=== PATIENT | male | born 1930 | race Caucasian/White ===

== ENCOUNTER 2017-04-13 21:01 | Inpatient (IN) | payer MEDICARE, OTHER ==
[~2017-04-13] VITALS: Ht 182.9 cm; Wt 81.0 kg
[~2017-04-13 21:01] MED LIST: ASP81TEC PO; CHOL10002 PO; COR625 PO; GLIP10TA2 PO; METF1000 PO; SMV40T PO
[2017-04-13 21:12] VITALS: BP 117/87; PULSE 79; RESP 16; O2SAT 96
[2017-04-13 21:15] LABS: BASOPHILS % (AUTO) 0.2 % (0-3); EOSINOPHILS % (AUTO) 0.1 % (0-5); MONOCYTES % (AUTO) 11.6 % (4-12); Mean Corpuscular Hemoglobin 28.3 pg (27.0-35.0); Mean Corpuscular Volume 83.2 fL (81-100); NEUTROPHILS % (AUTO) 74.5 % (40-74); Platelet Count 252 bil/L (150-400)
--- NOTE | 2017-04-13 21:18 | ED.REPORT ---
HPI-General Illness Date of Service Apr 13, 2017 ED Provider: Randy Elder DO An 86 year old male with a history of five way CABG, hypertension and diabetes is brought to the ED via EMS due to weakness and a concerning EKG. Paramedics were called to the pt's house because of a fall that occurred three hours ago. The pt states that he had felt suddenly weak and fell, but denies hitting his head or other trauma. He had been too weak to stand after the fall. Paramedics found him hypotensive with a pressure in the 70's, then noted ST elevation on a field EKG. The pt denies chest pain, abdominal pain or shortness of breath at this time, but does admit to chest pain last night lasting for over an hour. Nursing Notes Stated Complaint: STEMI Chief Complaint: Chest Pain Nursing Notes Reviewed: Yes Allergies: Coded Allergies: BROCK Inhibitors (Verified Allergy, Unknown, Anaphylaxis, 04/13/17) Scheduled Aspirin Chew (Aspirin Chew) 81 Mg Chew 81 MG PO QAM Carvedilol (Carvedilol) 6.25 Mg Tablet 6.25 MG PO DAILY Cholecalciferol (Vitamin D3) (Vitamin D3) 2,000 Unit Tablet 2,000 UNIT PO QAM Glipizide (Glipizide) 10 Mg Tablet 10 MG PO BIDWM Metformin (Glucophage) 1,000 Mg Tablet 1,000 MG PO BIDWM Simvastatin (Simvastatin) 40 Mg Tablet 40 MG PO HS Timolol Maleate/Pf (Timoptic 0.5% Ocudose Drop) 1 Each Droperette 1 DROP BOTH_ EYES HS Vitamin B Complex & Vit C No.4 (Super B Complex) 150 Mg Tablet 150 MG PO DAILY General Time Seen by MD: 21:02 Chief Complaint Weakness Hx Obtained From: Patient, EMS Arrived By: Ambulance Sudden in Onset?: Yes Onset Occurred: 1 - 4 hours ago Recent Healthcare: No recent doctor visit, No recent hospitalization Similar Sx Previous: No Past Medical History Past Medical History hypertension back injury diabetes Past Surgical History foot surgery 5 way CABG Reports: Cataract surgery, Cholecystectomy Smoking History Former Smoker (quit 40 years ago) Social History Other Social History: Good social support Ambulatory Status Independent Review of Systems Full Review of Systems Constitutional: Reports: Weakness - generalized Respiratory: Denies: Non-productive cough, Shortness of breath Cardiovascular: Denies: Chest pain (denies currently) GI: Denies: Abdominal pain, Vomiting Musculoskeletal: Denies: Back pain, Neck pain Skin: Denies Rash Neurologic: Denies: Change LOC, Headache Complete sys rev & neg: except as marked. Physical Exam Vital Signs Vital Signs Date Time Temp Pulse Resp B/P Pulse Ox O2 Delivery O2 Flow Rate FiO2 04/13/17 22:45 75 20 89/68 97 Room Air 04/13/17 21:12 37.4 79 16 117/87 96 Room Air Initial VS: Reviewed General/Constitutional: Awake, Alert Head / Eyes: Atraumatic, Normocephalic, PERRL, EOMI ENT: Atraumatic, Airway patent, Mucous membranes moist Neck: Atraumatic, Supple, Full range of motion Respiratory / Chest: Atraumatic, Breath sounds NL, Breath sounds = bilat, No respiratory distress Cardiovascular: Heart rate NL, Regular rhythm, Heart sounds NL Abdomen: Atraumatic, Soft, Non-tender Back: Atraumatic, Full range of motion Upper Extremities Upper Extremity / MS: Atraumatic, Full range of motion Lower Extremity / Pelvis / MS: Atraumatic, Full range of motion Skin: Atraumatic, Color NL, No rash, Warm, Dry Neurologic: Oriented X3, Speech NL, No motor deficits, No sensory deficits Psychiatric: Affect NL, Mood NL Interpretation & Diagnostics Lab Results Interpretation Result Diagram: 04/13/17 2100 04/13/17 2100 Test 04/13/17 21:00 04/13/17 22:10 White Blood Count 12.9th/mm3 (3.8-10.1) Red Blood Count 5.58mil/mm3 (4.40-5.80) Hemoglobin 15.8g/dL (13.8-17.2) Hematocrit 46.4% (41.0-50.0) Mean Corpuscular Volume 83.2fL (81-100) Mean Corpuscular Hemoglobin 28.3pg (27.0-35.0) Mean Corpuscular Hemoglobin Concent 34.1% (32.0-37.0) Red Cell Distribution Width 13.5% (12.3-15.4) Platelet Count 252bil/L (150-400) Neutrophils (%) (Auto) 74.5% (40-74) Lymphocytes (%) (Auto) 13.4% (14-46) Monocytes (%) (Auto) 11.6% (4-12) Eosinophils (%) (Auto) 0.1% (0-5) Basophils (%) (Auto) 0.2% (0-3) Prothrombin Time 12.9sec (8.1-12.5) Prothromb Time International Ratio 1.20ratio Activated Partial Thromboplast Time 29.0sec (22.8-33.0) Sodium Level 137mEq/L (134-144) Potassium Level 4.8mEq/L (3.5-5.2) Chloride Level 98mEq/L (97-108) Carbon Dioxide Level 20mmol/L (18-29) Blood Urea Nitrogen 21mg/dL (8-27) Creatinine 1.34mg/dL (0.76-1.27) Estimat Glomerular Filtration Rate 53mL/min (>59) Glucose Level 360mg/dL (60-99) Calcium Level 10.2mg/dL (8.5-10.1) Magnesium Level 1.8mg/dL (1.6-2.6) Total Bilirubin 0.6mg/dL (0.0-1.2) Aspartate Amino Transf (AST/SGOT) 90U/L (0-50) Alanine Aminotransferase (ALT/SGPT) 24U/L (0-44) Alkaline Phosphatase 114U/L (25-160) Total Creatine Kinase 625U/L (21-232) Troponin T 1.58ug/L (0.0-0.011) Total Protein 7.9g/dL (6.4-8.4) Albumin 4.0g/dL (3.4-5.0) Hold [place] Top Tube Received (Received) Pulse Oximetry Interpretation Pulse Oximetry Interpretation: 96% on room air Pulse Oximetry: Pulse Ox normal ECG Interpretation ECG Interpretation: accelerated junctional rhythm with a rate of 78 ST elevation in lead [address] elevation compared to prior Time: 21:06 Interpreted by: ED physician X-Ray Chest Interpretation Chest Xray Interpretation: IMPRESSION: Slight appearance of increased right basilar opacity possibly representing atelectasis versus developing pneumonia. Dictated by: Adelita Aquino M.D. on 04/13/2017 at 21:44 Approved by: Adelita Aquino M.D. on 04/13/2017 at 21:45 Interpretation / Wet Read by: Interpret - Radiologist CT Head Interpretation IMPRESSION: 1. No acute intracranial process. 2. Moderate atrophy and chronic microvascular ischemic changes. Dictated by: Adelita Aquino M.D. on 04/13/2017 at 21:28 Approved by: Adelita Aquino M.D. on 04/13/2017 at 21:29 Interpretation / Wet Read by: Anne - Radiologist Re-Eval/Medical Decision Med Decision/Clinical Course This is a very delightful 78-year-old male who presents after having 3 hours of time on the ground. Evidently last night he had chest pain. The chest pain was rather severe however resolved. Today he had no pain. He was however globally weak while walking and he fell to the ground. He was on the ground for about 3 hours before he was found. EMS was eventually called. They found that he had ST elevation inferiorly however he was pain free. He presented with no symptoms whatsoever. Of note he was hypotensive in the field and this responded to IV fluids well. On examination. Clear lungs, benign belly and no signs of muscle skeletal trauma. EKG certainly shows ST abnormalities in inferior leads however Q waves were already developing. His family tells me that his EKG is always abnormal. This gentleman has no pain. There is no clear -cut indication for emergent cardiac catheterization as he has hemodynamic stable and pain-free and most likely suffered an TX last night. Chest x-ray is worrisome for developing pneumonia. Assessment myocardial infarction subacute. #2 pneumonia. Plan he will be admitted to the progressive care unit. IV heparin. Oral aspirin. After consultation with Dr. Moore we will hold off on Plavix and we will treat with IV ceftriaxone. He was admitted hemodynamically stable. He had one bout of hypotension that responded nicely to IV fluids. Source of Hx: Old records Time of Eval: 22:00 Re-Evaluation/Progress Note: Pt rechecked with family present. Additional history is obtained. The diagnosis and plan for admission are discussed. The pt understands and agrees with the plan. All questions are addressed at this time. Consultation #1: Referral / Consult Name: Jeffrey Bowman MD Consulted With: Cardiology Call Returned at: 20:57 Note: Consulted with Dr. Bowman, cardiology, regarding pt's field EKG. Dr. Bowman does not believe that the EKG shows an acute STEMI. Consultation #2: Referral / Consult Name: Jeffrey Bowman MD Consulted With: Cardiology Call Returned at: 21:30 Note: Spoke with Dr. Bowman, who does not recommend cath due to pt's current lack of pain. Consultation #3: Referral / Consult Name: Júnior Moore MD Consulted With: Cardiology Call Returned at: 22:06 Tooling Inspector: Agrees with eval, Agrees with plan Note: Spoke with Dr. Moore, cardiology, regarding pt's case. Dr. Moore recommends aspirin and heparin without Plavix. Consultation #4: Referral / Consult Name: Estrellita Dewitt DO Consulted With: Hospitalist Call Returned at: 23:02 Tooling Inspector: Agrees with eval, Agrees with plan, Accepts admit Note: Spoke with Dr. Dewitt, hospitalist, regarding pt's case. Dr. Dewitt agrees with the evaluation and agrees to admit the pt. Counseled Regarding: Diagnosis, Lab results, Need for admission Discharge & Departure Primary Impression: Myocardial infarction Myocardial infarction ST status: non-ST elevation myocardial infarction Qualified Code: I21.4 - Non-ST elevation (NSTEMI) myocardial infarction Additional Impression: Pneumonia Pneumonia type: due to unspecified organism Laterality: right Lung location : lower lobe of lung Qualified Code: J18.1 - Lobar pneumonia, unspecified organism Disposition: ADMITTED TO HOSPITAL Discharge Condition All VS Reviewed: Yes Condition: Stable Referrals: Arnaldo Sanchez MD (PCP) Crit Care Except Billable Proc Time Spent: 30-74 minutes (60 minutes managing consultation, IV heparin and resuscitation.) Scribe Attestation Portions of this note were transcribed by Candelario Guerrero. I, Dr. Elder personally performed the history, physical exam and medical decision-making; I reviewed and confirmed the accuracy of the information in the transcribed note. Signed by: Danielle Thomson, 04/13/2017 and [id number]. copies to: Arnaldo Sanchez MD, Todd P DO Apr 13, 2017 21:18 CANDELARIO GUERRERO Apr 13, 2017 21:35
--- NOTE | 2017-04-13 21:30 | DRSVH ---
PROCEDURE: CT BRAIN WITHOUT CONTRAST ([id number]) INDICATIONS: fall weakness TECHNIQUE: Noncontrast 4.5 mm thick angled axial sections acquired from the foramen magnum to the vertex, with c oronal reformats. COMPARISON: None. FINDINGS: Image quality: Excellent. CSF spaces: Basal cisterns are patent. No extra-axial fluid collections. The ventricles are symmet keyon in size and shape. Brain: No intracranial bleeds or masses. There is cerebral volume loss for age, with resultant vent ricular and sulcal prominence. There are periventricular and deep white matter chronic small vessel ischemic changes. There is intracranial internal carotid artery atherosclerosis. Skull and face: Calvarium and visualized facial bones appear intact, without suspicious lesions. Sinuses: Visualized sinuses demonstrates mucous retention cyst versus polyp of the left maxillary an d sphenoid sinuses. IMPRESSION: 1. No acute intracranial process. 2. Moderate atrophy and chronic microvascular ischemic changes. Dictated by: Adelita Aquino M.D. on 04/13/2017 at 21:28 Approved by: Adelita Aquino M.D. on 04/13/2017 at 21:29
[2017-04-13 21:42] LABS: INR 1.2 ratio
--- NOTE | 2017-04-13 21:47 | DRSVH ---
PROCEDURE: X-RAY CHEST ONE VIEW, PORTABLE ([id number]) INDICATIONS: chest pain TECHNIQUE: One view of the chest was acquired. COMPARISON: [facility], , CHEST 1VW (PORTABLE), 08/23/2013, 16:16. FINDINGS: Surgical changes and devices: Sternal wires consistent previous bypass procedure are noted. Lungs and pleura: No pleural effusions or pneumothorax. There slight appearance of increased opacity within the right base. Mediastinum: Mediastinal contours appear normal. Heart size is normal. Bones and chest wall: No suspicious bony lesions. Overlying soft tissues appear unremarkable. IMPRESSION: Slight appearance of increased right basilar opacity possibly representing atelectasis ve rsus developing pneumonia. Dictated by: Adelita Aquino M.D. on 04/13/2017 at 21:44 Approved by: Adelita Aquino M.D. on 04/13/2017 at 21:45
[2017-04-13] MEDS ORDERED: cefTRIAXone Inj 2,000 MG in Dextrose 5% Minibag Plus 50 ML IV ONE (21:55)
[2017-04-13 21:59] LABS: Magnesium 1.8 mg/dL (1.6-2.6)
[2017-04-13 22:01] LABS: TROPONIN T 1.58 ug/L (0.0-0.011)
[2017-04-13] MEDS ORDERED: Heparin 25K Unit/500mL 0.45 NS 25,000 UNIT in IV Premix 1 EACH IV SCH (22:05)
[2017-04-13] MEDS ORDERED: Heparin 5,000 Unit/mL Inj IVPUSH ONE (22:05)
[2017-04-13] MEDS ORDERED: Heparin 5,000 Unit/mL Inj IVPUSH PRN (22:05)
[2017-04-13 22:45] VITALS: BP 89/68; PULSE 75; RESP 20; O2SAT 97
[2017-04-13] MEDS ORDERED: 0.9% Sodium Chloride 500 ML IV ONE (22:50)
[2017-04-13] MEDS ORDERED: TIMO1DRO4 BOTH_EYES (23:11)
[2017-04-13] MEDS ORDERED: GLIP10TA10 PO (23:12)
[2017-04-13] MEDS ORDERED: CARV6.252 PO (23:12)
[2017-04-13] MEDS ORDERED: METF1000 PO (23:12)
[2017-04-13] MEDS ORDERED: ASPI81TA3 PO (23:12)
[2017-04-13] MEDS ORDERED: SIMV40TA5 PO (23:13)
[2017-04-13] MEDS ORDERED: VITA150T PO (23:14)
[2017-04-13] MEDS ORDERED: CHOL200025 PO (23:14)
[2017-04-14] VITALS (10 sets, daily range): BP systolic 101–127; BP diastolic 61–69; PULSE 64–87; RESP 16–22; O2SAT 94–100
[2017-04-14] MEDS ORDERED: Ondansetron 2 mg/mL 2 mL Inj IVPUSH PRN ×2 (00:05→00:30)
[2017-04-14] MEDS ORDERED: Alum-Mag Hydrox-Simeth 30 mL Suspension PO PRN ×2 (00:05→00:30)
[2017-04-14] MEDS: Sodium Chloride LOK Flush 10 mL Syringe IVFLUSH SCH ×3 (00:30→16:30)
[2017-04-14] MEDS ORDERED: Heparin 25K Unit/500mL 0.45 NS 25,000 UNIT in IV Premix 1 EACH IV PRN (00:30)
[2017-04-14] MEDS ORDERED: Atropine 1 mg/10 mL (Code) Syringe IVPUSH PRN (00:30)
[2017-04-14] MEDS ORDERED: Polyethylene Glycol (PEG) 17 Gm Powder PO PRN (00:30)
[2017-04-14] MEDS ORDERED: Senna-Docusate 8.6-50 mg Tablet PO PRN (00:30)
--- NOTE | 2017-04-14 00:40 | PCM.HPMED ---
Subjective Date of Service Apr 14, 2017 Primary Provider: Admitting Physician: Estrellita Dewitt DO Primary Care Physician: Abram Ahn MD Attending Physician: Estrellita Dewitt DO Admit Status: From the Emergency Department Chief Complaint: Chest pain, weakness History of Present Illness: Patient is an 86 year old male with a history of CAD with five vessel CABG, hypertension and diabetes mellitus type 2 who presents with weakness and chest pain. Paramedics were called to the pt's house because of a fall that occurred three hours ago. The pt states that he had felt suddenly weak in his legs while walking and fell, but denies hitting his head or other trauma. He had been too weak to stand after the fall. Paramedics found him hypotensive with SBP in the 70's. An EKG in the field showed ST elevation. He reports aching substernal 7/ 10 chest pain which has now improved to a 2/10. This chest pain occurred over the last 2 days, and lasted for over an hour last night. He reports 3 days of generalized weakness and dizziness. He denies syncope, shortness of breath, palpitations, abdominal pain, N/V/D, orthopnea, PND, numbness/focal weakness, confusion, or diaphoresis. In the ED, BP was 89/68 but improved to 118/69 after receiving fluids. WBC was 12.9 with 74.5% neutrophils. Cr was 1.34. Glucose was 360. AST 90, ALT 24, CK was 625, Troponin was 1.58. EKG showed ST elevation in inferior leads. CXR showed increased right basilar opacity possibly representing pneumonia. CT head showed moderate atrophy and chronic microvascular ischemic changes, but not acute changes. Cardiology was consulted, and do not recommend an urgent cath at this time. They recommend aspirin and heparin without Plavix. Review of Systems: Comprehensive review of systems conducted and was negative except for the pertinent positives listed above. Allergies Coded Allergies: BROCK Inhibitors (Verified Allergy, Unknown, Anaphylaxis, 04/13/17) Home Medications Aspirin 81 mg daily Carvedilol 6.25 mg daily Vitamin D3 Glipizide 10 mg BID Metformin 1000 mg BID Simvastatin 40 mg qhs Timolol eye drops Vitamin B complex PMH hypertension diabetes mellitus CAD s/p CABG back injury Surgical History 5 way CABG foot surgery Cataract surgery Cholecystectomy Family History Father - at 82 of complications following abdominal surgery Mother - at 87 of natural causes Social History Hx Alcohol Use: No Hx Substance Use: No Hx Tobacco Use: No Smoking Status: Former Smoker (quit 40 years ago) Exam Vital Signs Vital Sign - Last Date Time Temp Pulse Resp B/P Pulse Ox O2 Delivery O2 Flow Rate FiO2 04/14/17 00:20 87 16 118/69 95 Room Air 04/13/17 21:12 37.4 Intake and Output 04/13/17 04/13/17 04/14/17 Cumulative From/Thru 14:59 22:59 06:59 04/13/17 22:46 - 04/13/17 22:46 Intake Total 500 ml 500 ml Balance 500 ml 500 ml Intake IV Total 500 ml 500 ml Exam General: Alert, Oriented X3, Cooperative, No acute distress Head: Normocephalic, atraumatic. External ears normal. Eyes: PERRLA, EOMI. Anicteric sclerae. Mouth: Mouth normal, Mucous membranes moist/pink Neck: Neck supple with full range of motion. Chest& Lungs: Clear to auscultation bilaterally with no crackles, wheezes, or rhonchi. Cardiovascular: Regular rate/rhythm, Normal S1, Normal S2, No murmurs/rubs/ gallops Abdomen: Non-tender, Non-distended, No masses, Normoactive bowel tones, Soft Musculoskeletal: Normal range of motion Extremities: No cyanosis/clubbing/edema bilaterally Neurological: Grossly neurologically intact. Normal speech Lymph: no cervical or supraclavicular lymphadenopathy Skin: no rash, ecchymosis, erythema Lab and Diagnostics Result Diagram: 04/13/17209904/13/17 2100 Assessment & Plan Patient is an 86 year old male with a history of CAD with five vessel CABG, hypertension and diabetes mellitus type 2 who presents with weakness and chest pain. Admitted for acute STEMI. Acute STEMI. Present on admission. - Pt presents with substernal chest pain and weakness with ST elevation in inferior leads. Troponin 1.58. Hx of CAD with 5x CABG. Cardiology consulted, will see him in the AM, do not recommend urgent catheterization. Will start aspirin and heparin per Cardiology recommendations. - Heparin gtt cardiac protocol - Aspirin 81 mg daily - Switched statin to atorvastatin 80 mg daily - Nitro and morphine PRN - Echocardiogram in AM - Cardiology to consult in AM -beta melody held on admission d/t hypotension, normally takes carvedilol at home -hgba1c and lipid panel pending Community acquired pneumonia, acute. Present on admission. - CXR showed increased right basilar opacity possibly representing atelectasis versus developing pneumonia (read by admitting team). WBC elevated with left shift. Onset of pneumonia may have pushed patient into acute ND. - Ceftriaxone and azithromycin IV daily - Sputum and blood cultures - Urine Legionella and Strep pneumo antigens - Viral PCR - Procalcitonin - Monitor CBC Acute kidney injury. Present on admission. - Baseline Cr 0.9. Cr today 1.34. Possibly due to dehydration from pneumonia. - Gentle rehydration - Avoid nephrotoxic agents. Will hold metformin Type 2 diabetes mellitus - Glucose 360 today. Possibly secondary to infection. - A1c ordered - Humalog medium dose correctional scale - Lantus 5 U qhs - Hold home glipizide - pt is NPO - Holding home metformin until Cr improves Hypertension, chronic - Pt was hypotensive on admission - will hold carvedilol until stable and seen by cardiology - Bowel regimen as needed - Antiemetic as needed Patient is admitted under inpatient status with expected length of stay greater than 2 midnights due to severity of presenting symptoms, risk of adverse event, and complexity of treatment plan. Attending Statement The patient was seen and examined together with house staff on 04/14/2017 and I agree with the history, exam and plan as outlined in the note above. Lars Hamilton Apr 14, 2017 00:40 Estrellita Dewitt DO Apr 14, 2017 04:29
[2017-04-14] MEDS ORDERED: Glucose 40% Oral Gel 15 Gm Tube PO PRN (01:00)
[2017-04-14] MEDS: 0.9% Sodium Chloride 1,000 ML IV SCH ×4 (01:53→18:06)
--- NOTE | 2017-04-14 02:14 | NUR ---
Admit Received patient from ED. Transferred to bed, on RA, Heparin gtt infusing, denies pain or discomfort. Cooperative with care, Tele 1' AVB, with IVCD, PVC, PAC. Allergy band on, oriented to room and call light. Safety checks in place, care continues, pt. indicates no further needs at this time - care continues.
[2017-04-14] MEDS: Insulin GLARgine 100 Unit/mL Syringe SUBQ SCH ×2 (03:09→21:28)
[2017-04-14 04:52] LABS: BASOPHILS % (AUTO) 0.1 % (0-3); EOSINOPHILS % (AUTO) 0.1 % (0-5); MONOCYTES % (AUTO) 10.1 % (4-12); Mean Corpuscular Hemoglobin 29.3 pg (27.0-35.0); Mean Corpuscular Volume 80.9 fL (81-100); Platelet Count 168 bil/L (150-400)
[2017-04-14 05:28] LABS: Magnesium 1.6 mg/dL (1.6-2.6)
[2017-04-14] MEDS: Azithromycin Inj 500 MG in Dextrose 5% w/Vial Mate 250 ML IV SCH (05:30)
--- NOTE | 2017-04-14 06:53 | NUR ---
Cardiac Rested with eyes closed, no stated pain or discomfort. Wakes to gentle stimuli. Tele: 1st AVB, IVCD, PAC, PVC with multiple runs of 2nd degree HB, and 1 episode 3rd degree HB. MD notified, Atropine and Pacer pads placed at bedside. Pt. placed on continuous monitoring. Heparin gtt infusing @ 1025u/hr, next draw scheduled for 1030.
[2017-04-14] MEDS: Insulin LISPRO 300 Unit/3 mL Inj SUBQ SCH ×4 (09:28→21:29)
--- NOTE | 2017-04-14 10:27 | PCM.PNMED ---
Subjective Date of Service Apr 14, 2017 Subjective Patient was admitted last night for an inferior STEMI. Cardio consulted in the ER and did not recommend an urgent cath. They recommend aspirin and heparin without Plavix. This morning, patient rests on bed with eyes closed, no stated pain or discomfort. Wakes to gentle stimuli. Patient denies any complaint at this point. Tele shows multiple runs of 2nd degree heart bloack, and 1 episode of 3rd degree HB. Heparin gtt infusing. Exam Vital Signs Vital Sign - Last Date Time Temp Pulse Resp B/P Pulse Ox O2 Delivery O2 Flow Rate FiO2 04/14/17 07:32 36.8 79 18 101/61 100 Room Air Intake and Output 04/13/17 04/13/17 04/14/17 Cumulative From/Thru 15:00 23:00 07:00 04/13/17 22:46 - 04/14/17 06:57 Intake Total 500 ml 681 ml 1181 ml Balance 500 ml 681 ml 1181 ml Intake Oral 0 ml 0 ml IV Total 500 ml 681 ml 1181 ml # Voids 2 2 Exam General: Alert, Oriented X3, Cooperative, No acute distress Head: Normocephalic, atraumatic. External ears normal. Eyes: PERRLA, EOMI. Anicteric sclerae. Mouth: Mouth normal, Mucous membranes moist/pink Neck: Neck supple with full range of motion. Chest& Lungs: Clear to auscultation bilaterally with no crackles, wheezes, or rhonchi. Cardiovascular: Regular rate/rhythm, Normal S1, Normal S2, II/ systolic murmur. Abdomen: Non-tender, Non-distended, No masses, Normoactive bowel tones, Soft Extremities: No cyanosis/clubbing/edema bilaterally Neurological: Grossly neurologically intact. Normal speech Lymph: no cervical or supraclavicular lymphadenopathy Skin: no rash, ecchymosis, erythema IVs and Medications Medications Reviewed: Medications were reviewed in detail Lab and Diagnostics Result Diagram: 04/14/1742904/14/17 043 X-Rays, CTs and MRIs PROCEDURE: CT BRAIN WITHOUT CONTRAST IMPRESSION: 1. No acute intracranial process. 2. Moderate atrophy and chronic microvascular ischemic changes. Dictated by: Adelita Aquino M.D. on 04/13/2017 at 21:28 PROCEDURE: X-RAY CHEST ONE VIEW, PORTABLE IMPRESSION: Slight appearance of increased right basilar opacity possibly representing atelectasis versus developing pneumonia. Dictated by: Adelita Aquino M.D. on 04/13/2017 at 21:44 Assessment & Plan Patient is an 86 year old male with a history of CAD with five vessel CABG, hypertension and diabetes mellitus type 2 who presents with weakness and chest pain. Admitted for acute STEMI. # Acute STEMI. Present on admission. - Patient presents with substernal chest pain and weakness with ST elevation in inferior leads. Troponin 1.58, trending down to 1.29. - Telemetry shows several runs of 2nd degree heart block and one 3rd degree heart block. - Hx of CAD with 5x CABG. Cardiology consulted in the ED and did not recommend urgent catheterization. Called Dr. Bowman again this morning, who agreed to see the patient MARYBETH. - Aspirin 81mg and heparin gtt per Cardiology recommendations. - Discussed with Dr. Bowman, who will plan to do a cardiac cath today if the patient agrees to proceed. - Continue atorvastatin 80 mg daily - Nitro and morphine PRN - Echocardiogram pending - beta melody held on admission d/t hypotension, normally takes carvedilol at home. Will continue to hold as his BP is still low. - Normal lipid panel. A1c pending # Possible community acquired pneumonia, acute. Present on admission. - CXR showed increased right basilar opacity possibly representing atelectasis versus developing pneumonia. - Procalcitonin mildly elevated at 0.28. - WBC elevated with left shift on admission, resolved now. - Ceftriaxone and azithromycin IV was given. - Sputum and blood cultures pending. - Urine Legionella and Strep pneumo antigens pending. Will consider D/C antibiotics if these tests are negative. - Continue to monitor CBC # Acute kidney injury. Present on admission. Resolved. - Baseline Cr 0.9. Possibly due to dehydration from pneumonia. - Gentle rehydration - Avoid nephrotoxic agents. # Type 2 diabetes mellitus - Glucose 360 today. Possibly secondary to infection. - A1c pending - Humalog medium dose correctional scale - Lantus 5 U qhs - Hold home glipizide - pt is NPO - Holding home metformin until Cr improves # Hypertension, chronic - Pt has had low-normal BP - will hold carvedilol until stable and seen by cardiology - Bowel regimen as needed - Antiemetic as needed Patient is admitted under inpatient status with expected length of stay greater than 2 midnights due to severity of presenting symptoms, risk of adverse event, and complexity of treatment plan. Pain Evaluation: Adequate Pain Control VTE Prophylaxis: Sub-Q Heparin (Unfractionated) Resuscitation Status: CPR: Attempt Resuscitation Attending Statement Patient seen and examined with house staff. Agree with all attached documentation. Donato Ayala DO Apr 14, 2017 08:02 Kev Horowitz MD Apr 15, 2017 13:25
--- NOTE | 2017-04-14 10:49 | NUR ---
pACER PAD Addendum: 04/14/17 at 1050 by ISAAK TOBAR RN Pacer pad applied to chest and back as ordered. Respiratory viral sample sent to lab. Will sand urine sample when it's available.
--- NOTE | 2017-04-14 13:22 | CONS ---
[address] [address] CONSULTATION REPORT PATIENT: JOSE CHAPIN : 1930 MR#: [id number] ADMIT: 04/13/2017 JOB ID: [id number] DATE OF SERVICE: REQUESTED BY: Randy Elder DO, and Kev Horowitz MD. CHIEF COMPLAINT: Suspected inferior NY. HISTORY OF PRESENT ILLNESS: This 86-year-old gentleman presented to the hospital yesterday. The paramedics brought the patient home due to the EKG in the field that suggested an inferior NY. The patient apparently felt weak in his legs. He states he lost power in his legs and fell. Denies any syncope or presyncope. He was too weak to stand up. The paramedics found him to be very hypotensive. The patient at the time of assessment denied any chest discomfort. I spoke with Dr. Randy Elder who stated that the patient's last episode of chest discomfort was over a day ago. The initial plan while the patient was still en route was to take him to the chemical laboratory scientist. However, this was changed once it became apparent that the patient had not had any chest discomfort for over 24 hours. He was hemodynamically stable and his blood pressure was around 120 systolic after receiving IV fluids. The patient was breathing comfortably and did not complain of any symptoms. This morning, the patient is pain free. History was obtained from him as well as the chart and his son. The patient apparently has known history of coronary artery disease having had a five-vessel bypass in [place] 12 years ago. He does not see Cardiology on a regular basis. I have reviewed the charts. There is mention that Cardiology did not recommend Plavix. I am not aware of that and I think it might be either an error or a misunderstanding on the part of the resident. PAST MEDICAL HISTORY: Hypertension, diabetes, coronary artery disease, status post CABG, and back injury. Cholecystectomy. FAMILY HISTORY: Negative for premature coronary artery disease. PERSONAL HISTORY: Nonsmoker. Nondrinker. He is moderately active. He still does yard work. He claims he owns many homes. He still drives. ALLERGIES: BROCK INHIBITORS. REVIEW OF SYSTEMS: Comprehensive review of systems was done. Pertinent negatives are no GI, bleeding. No recent strokes. No upcoming surgeries. EXAMINATION: Alert, oriented. Neck supple. No JVD, no bruit. Chest: Clear. Heart sounds S1, S2 regular. Occasional ectopics. No gallops, no murmurs. Abdomen soft. Extremities: Negative for CCE. Distal pulses are diminished. PERFORMING ARTS ROAD MANAGER: As mentioned, alert and oriented. Moving all four limbs. LAB DATA: Reviewed. Hemoglobin 15. Troponin is elevated at 1.29. LDL is 104. HDL is 39. ALT is mildly elevated at 62. Telemetry shows periods of marked first-degree AV block, followed by Wilsonnckebach, one period of high-grade AV block with 3:1 conduction. ASSESSMENT AND PLAN: Recent inferior myocardial infarction. This gentleman presented late after an inferior NY. He was hemodynamically stable and the NY had occurred more than 24 hours prior to admission. In view of this, an urgent intervention was not indicated. Medical management was recommended. The patient has started having periods of high-grade AV block. 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 I have discussed the treatment options with the patient as well as his son. His son helps him make his medical decisions. They have agreed for angiography. My hope is that by intervening on his right coronary artery his AV block might resolve and he might not require a pacemaker. If he continues to have periods of AV block then consideration will need to be given for a permanent pacemaker prior to discharge. It to be noted it is not uncommon for patients to have AV block after right coronary infarct and oftentimes these will resolve with time. All this was explained to the patient. The procedure, the risks, benefits were explained. They have agreed to proceed ahead with intervention.
--- NOTE | 2017-04-14 14:23 | DRSVH ---
[facility] [address] [place] [address] Echocardiogram Report Name: JOSE CHAPIN WStudy Uriel e: 04/14/2017 Height: 7 2 in Hospital Exam Location: [facility] Weight: 1 74 lb Gender: Male BSA: 2.0 m2 : 1930 Age: 86 yrs BP: 101/6 1 mmHg Reason For Study: [place], Pneumonia, Chest Pain Ordering Physician: HOSPITALIST [facility] Performed By: Flores Chávez Referring Physician: Dr. Abram Ahn Interpretation Summary 1) Normal left ventricular size with severely reduced systolic function (EF 25-30%). 2) Moderate global hypokinesis with akinesis of the inferior and inferolateral wall. 3) Mildly dilated right ventricle with mildly reduced function. 4) Moderate mitral regurgitation present. 5) Pulmonary systolic pressure estimated at 37mmHg. 6) No prior Echo available for comparison. Findings consistent with ischemic heart disease. Procedure: A two-dimensional transthoracic echocardiogram with color flow and Doppler was performed. The study quality was technically good. There is no prior echocardiogram noted for this patient. Left Ventricle: The left ventricle is normal in size. Left ventricular wall thickness is mildly increased. A false chord is noted (normal variant). The ejection fraction is estimated to be 25-30%. Left ventricular systolic function is moderate to severely reduced. There is moderate global hypokinesis of the left ventricle. Inferior wall and inferolateral wall are akinetic. Diastolic function could not be accurately assessed due to atrial fibrillation. Right Ventricle: TAPSE measures at 11mm. The right ventricle is mildly dilated. Right ventricular systolic function is mildly reduced. Atria: The left atrial size is normal. Right atrial size is normal. The interatrial septum is intact with no evidence for an atrial septal defect. Mitral Valve: The mitral valve leaflets appear mildly thickened, but open well. There is no mitral valve stenosis. There is moderate mitral regurgitation. PISA noted calculated due to multiple jets. Aortic Valve: There is mild aortic valve sclerosis. There is no aortic valve stenosis. There is trace aortic regurgitation. Tricuspid Valve: The tricuspid valve is normal in structure and function. There is mild tricuspid regurgitation. The right ventricular systolic pressure is estimated at 37 mmHg assuming a right atrial pressure of 15 mm Hg. Pulmonic Valve: The pulmonic valve is not well visualized. There is moderate pulmonic regurgitation. Great Vessels: The aortic root is normal size. The ascending aorta is at the upper limits of normal in size. The pulmonary artery is normal size. The IVC is dilated (diameter is greater than 2.1 cm) and it collapses less than 50% with a sniff. This suggests a high right atrial pressure of 15 mm Hg. Pericardium/ Pleura There is no pericardial effusion. There is no pleural effusion. MMode/2D Measurements & Calculations LVIDd: 5.1 cm LA dimension RA long axis LVOT diam: 2.5 cm LVIDs: 4.0 cm AoV Openin.4 cm FS: 21.9 % LA A2 area RA area Ao root diam: 4.0 cm EPSS: 0.94 cm Aortic Jxn: 3.2 cm IVSd: 1.3 cm : 17.6 cm asc Aorta Diam: 3.7 cm LVPWd: 1.1 cm LA A4 area RA vol Ao Arch Diam (Prox : 55.3 ml Trans): 3.3 cm LA length (vol) RA : 27.5 mm2 LA vol: 57.7 ml LA vol index IVC diam: 2.3 cm LVAd ap4: 34.7 cm LVAd ap2 LV frederick. diameter/BSA LVAs ap4: 27.6 cm : 36.5 cm EF(MOD-bp) (cm/m^2): 2.5 LVLs ap4: 7.6 cm LVLd ap2: 8.7 cm: 23.1 % EDV(MOD-sp2) EDV(sp2-el) LVAs ap2 : 30.5 cm LVLs ap2: 8.4 cm ESV(MOD-sp2) ESV(sp2-el) EF(MOD-sp2) LV sys. diameter/BSA (cm/m^2): 2.0 Doppler Measurements & Calculations Ao V2 max MV E max shahzad Med Peak E' Shahzad TR max shahzad : 135.0 cm/sec : 116.1 cm/sec : 233.4 cm/sec Ao max P.3 mmHg E/E' med: 13.4 TR max PG Ao mean P.7 mmHg : 21.9 mmHg LVOT Max Shahzad PA V2 max : 80.2 cm/sec : 65.6 cm/sec REINA(I,D): 2.8 cm PA mean PG sev ratio: 0.58 : 0.94 mmHg PA Accel Time : 0.12 sec MV dec time: 0.12 sec Ao V2 mean LV V1 max PG PA V2 mean : 90.0 cm/sec : 45.5 cm/sec Ao V2 VTI: 28.0 cmLV V1 VTI PA pr(Accel) REINA(V,D): 2.9 cm2 : 16.3 cm : 27.1 mmHg REINA indexed to BSA (cm^2/m^2): 1.4 Reading Physician:02:22 PM
--- NOTE | 2017-04-14 14:59 | NUR ---
Heart cath prep Pt. has 2 patent peripheral IV. Plavix 150 mg PO given as directed by Dr. Bowman and . Pt. already had Aspirin 81 mg PO this morning, which Dr. Bowman was made aware of this. DP and TD pulses are audible with doppler and marked with surgical marker. Anticipate heart cath today. Addendum: 04/14/17 at 1651 by ISAAK TOBAR RN Heart cath was cancelled. Pt. will have the procedure tomorrow. Pt. was notified.
[2017-04-14 17:14] LABS: APPEARANCE,URINE CLEAR (CLEAR,HAZY); COLOR,URINE YELLOW (YELLOW)
[2017-04-14 17:15] LABS: OCCULT BLOOD,URINE TRACE (NEGATIVE); UROBILINOGEN,URINE NORMAL (NORMAL)
[2017-04-14] MEDS ORDERED: Heparin 25K Unit/500mL 0.45 NS 25,000 UNIT in IV Premix 1 EACH IV SCH (17:20)
[2017-04-14] MEDS: Heparin 5,000 Unit/mL Inj IVPUSH PRN ×2 (17:29→23:15)
[2017-04-14] MEDS ORDERED: Insulin GLARgine 100 Unit/mL Syringe SUBQ SCH (21:00)
[2017-04-14] MEDS ORDERED: cefTRIAXone Inj 1,000 MG in Dextrose 5% Minibag Plus 50 ML IV SCH (22:00)
[2017-04-15] VITALS (18 sets, daily range): BP systolic 94–153; BP diastolic 44–104; PULSE 51–69; RESP 11–26; O2SAT 88–97
[2017-04-15] MEDS: Sodium Chloride LOK Flush 10 mL Syringe IVFLUSH SCH ×3 (00:40→17:23)
--- NOTE | 2017-04-15 04:55 | NUR ---
NPO/ACTIVITY Pt. NPO after midnight, anticipation of heart cath in am. Tele: 60's 1' AVB, IVCD with runs of 2' HB. Pacer pads in place, Atropine at bedside. Up out of bed for walk, weak gait with 1 person assist. Care continues -
[2017-04-15] MEDS: 0.9% Sodium Chloride 1,000 ML IV SCH ×2 (05:07→18:10)
[2017-04-15] MEDS: Azithromycin Inj 500 MG in Dextrose 5% w/Vial Mate 250 ML IV SCH (05:07)
[2017-04-15 06:10] LABS: Magnesium 1.6 mg/dL (1.6-2.6)
[2017-04-15] MEDS ORDERED: Heparin 10,000 Unit/1,000 mL NS Premix IV ONE (07:33)
[2017-04-15] MEDS ORDERED: Heparin 1,000 Units/500 mL NS Premix IV ONE (07:33)
[2017-04-15] MEDS: Insulin LISPRO 300 Unit/3 mL Inj SUBQ SCH ×4 (07:44→22:53)
--- NOTE | 2017-04-15 07:50 | NUR ---
Off unit Pt off unit to general production laborer with staff. Report given at bedside. BG was 325, insulin not given due to NPO but given to RN to take to cath just sayra CORTEZ wants it given prior to procedure. Ativan and Benadryl ordered but no given as well due to not being able to pull from omni, general production laborer staff will give down stairs. Pt A&Ox3, voided cecil urine prior to leaving, vitals stable, and SL x2. I will notify family. histologist technologist aware pt off unit. Addendum: 04/15/17 at 1118 by SHARRON LINK RN Back to unit at 1100 by JOHN ANNE. A&Ox3, vitals stable, on bedrest till after lunch. NS running at 100 till 1300. Right groin site soft and non tender no oozing, no co/o pain.
[2017-04-15] MEDS ORDERED: Nitroglycerin 50,000 mcg/250 mL D5W Premix IV ONE (07:58)
[2017-04-15] MEDS ORDERED: Atropine 1 mg/10 mL (Code) Syringe ONE (08:14)
[2017-04-15] MEDS ORDERED: Atropine 1 mg/10 mL (Code) Syringe IVPUSH PRN (09:15)
[2017-04-15] MEDS ORDERED: Sodium Chloride LOK Flush 10 mL Syringe IVFLUSH PRN (09:15)
--- NOTE | 2017-04-15 11:00 | NUR ---
Post Cath: Pt arrived to [facility] at 0855 post diagnostic heart cath from lab courier to room 9. R groin with tegaderm dressing, no drainage, pedal pulses weak bilaterally. VSS. Pt had moments of apnea, 2L NC applied with SpO2 remained >92%. During apnea, HR dropped to 30-40s. Once pt awake, tolerated po intake. Vitals remained stable throughout time in [facility]. Report called Mini Rodriguez RN. Pt taken upstairs to room 2008 at 1100 in bed.
--- NOTE | 2017-04-15 11:34 | CS94 ---
[address] [address] DIAGNOSTIC CARDIAC CATHETERIZATION PATIENT: JOSE CHAPIN : 1930 MR#: [id number] ADMIT: 04/13/2017 JOB ID: [id number] SERVICE DATE: 04/15/2017 PROCEDURE: 1. Selective coronary angiography. 2. Saphenous vein angiography. 3. PINTO angiography. 4. Left heart catheterization. INDICATION: Non-STEMI. PROCEDURAL DETAILS: The reader and the coders are referred to the procedure log for complete details. Briefly, it was done via right femoral approach using a 6-Maltese system. ANGIOGRAPHIC FINDINGS: 1. Left main in its ostium has a 70%-80% lesion. 2. LAD is a diffusely diseased vessel. It has disease of about 50%-70% in its entirety. The diagonals are involved as well. Faint competitive flow is noted in the distal vessel. There is retrograde filling of the saphenous vein graft on the left coronary injection. This appears to be from the ramus intermedius branch. The proximal LAD has a long tubular stenosis of about 80%. 3. Circumflex is diffusely diseased as well. It is nondominant. The proximal and mid segment have multiple tandem lesions ranging from 60%-80%. Mid segment has a tubular stenosis of about 70%. No significant OM's were identified on [place] coronary injections. 4. Ramus intermedius is a moderate caliber vessel. There is a graft attached to this vessel that appears to fill retrogradely. 5. Right coronary artery is totally occluded in its mid segment. 6. Saphenous vein graft angiography: There is a T graft that appears to be attached to an obtuse marginal branch and a ramus. This graft appears to be pristine. The [place] vessels that it supplies are diffusely diseased. 7. Saphenous vein graft to posterolateral branch of the right coronary artery is occluded. It appears to be filled with thrombus. 8. Saphenous vein graft to PDA is patent. It is a small caliber graft. The PDA is a small caliber vessel also about 1.5 mm. The proximal part of the PDA has a 50% lesion and the apical segment an 80% lesion but this lesion is not amenable to percutaneous intervention. 9. Subclavian angiography revealed patent PINTO to the LAD. The PINTO attaches into the apical LAD which like the rest of the LAD is diffusely diseased. The mid left subclavian has a tight ulcerated 80% lesion. 10. Note is also made of heavy calcification in the aortic arch. 11. Left heart catheterization revealed moderately reduced LV function. Severe anteroapical hypokinesis to akinesis is suspected on this under filmed LV gram. There is 1-2+ MR also and some of it could be catheter induced. LVEDP was 21. There was no gradient upon pullback. In summary, this gentleman is adequately revascularized. The biggest problem is going to be his subclavian. It is an ulcerated lesion with significant plaque burden. This would be at risk for an embolic shower. With regards to his recently occluded saphenous vein graft, this is best treated medically.
--- NOTE | 2017-04-15 16:38 | PCM.PNMED ---
Subjective Date of Service Apr 15, 2017 Subjective Overnight: Uneventful. Patient had the cath done and had no issue. Vitals remained stable. Telemetry shows some SR at 60s with 2nd degree heart block at times. Today: Patient denies any symptoms this morning. He denies CP, SOB, dizziness, nausea, or vomiting. In the afternoon, his family has a lot of questions regarding the blockage of the subclavian artery. Dr. Bowman discussed with them about the risk of embolism and recommended medical treatment at this point. However, family would like to have a second opinion. The patient's granddaughter really likes Dr. Acosta and would like to have him evaluate the patient, either at [facility] or have the patient transfer to [facility] in [place]. Exam Vital Signs Vital Sign - Last Date Time Temp Pulse Resp B/P Pulse Ox O2 Delivery O2 Flow Rate FiO2 04/15/17 04:48 36.5 67 20 107/58 95 Room Air Intake and Output 04/14/17 04/14/17 04/15/17 Cumulative From/Thru 15:00 23:00 07:00 04/13/17 22:46 - 04/15/17 06:28 Intake Total 932 ml 2273 ml 4386 ml Output Total 500 ml 250 ml 750 ml Balance 432 ml 2023 ml 3636 ml Intake Oral 120 ml 300 ml 420 ml IV Total 812 ml 1973 ml 3966 ml Output Urine Total 500 ml 250 ml 750 ml # Voids 1 3 # Bowel Movements 0 0 Exam General: Alert, Oriented X3, Cooperative, No acute distress Head: Normocephalic, atraumatic. External ears normal. Eyes: PERRLA, EOMI. Anicteric sclerae. Mouth: Mouth normal, Mucous membranes moist/pink Neck: Neck supple with full range of motion. Chest& Lungs: Clear to auscultation bilaterally with no crackles, wheezes, or rhonchi. Cardiovascular: Regular rate/rhythm, Normal S1, Normal S2, II/ systolic murmur. Abdomen: Non-tender, Non-distended, No masses, Normoactive bowel tones, Soft Extremities: No cyanosis/clubbing/edema bilaterally Neurological: Grossly neurologically intact. Normal speech IVs and Medications Medications Reviewed: Medications were reviewed in detail Lab and Diagnostics Result Diagram: 04/15/1751904/15/17519 X-Rays, CTs and MRIs PROCEDURE: CT BRAIN WITHOUT CONTRAST IMPRESSION: 1. No acute intracranial process. 2. Moderate atrophy and chronic microvascular ischemic changes. Dictated by: Adelita Aquino M.D. on 04/13/2017 at 21:28 PROCEDURE: X-RAY CHEST ONE VIEW, PORTABLE IMPRESSION: Slight appearance of increased right basilar opacity possibly representing atelectasis versus developing pneumonia. Dictated by: Adelita Aquino M.D. on 04/13/2017 at 21:44 Assessment & Plan Patient is an 86 year old male with a history of CAD with five vessel CABG, hypertension and diabetes mellitus type 2 who presents with weakness and chest pain. Admitted for acute STEMI. # Acute STEMI. Present on admission. - Patient presents with substernal chest pain and weakness with ST elevation in inferior leads. Troponin 1.58, trending down to 1.29. - Hx of CAD with 5x CABG. - Cardiology consulted in the ED and did not recommend urgent catheterization. semiconductor lab technician was done this morning 04/15, which showed severe CAD in both tribal and graft vessels, notably total occlusion in the RCA and the saphenous vein graft to the posterolateral branch of the RCA. There is also a tight ulcerated 80% lesion in the mid left subclavian with significant plaque burden that is at risk for an embolic shower. - Telemetry continues to show several runs of 2nd degree heart block overnight. - Echocardiogram shows severely reduced systolic function (EF 25-30%) and moderate global hypokinesis with akinesis of the inferior and inferolateral wall. - Given his age and risk factors, Dr. Bowman recommended conservative management with medications. Unsure if patient is a candidate for a pacemaker. Will need to discuss with family about this as well. - Patient's family requested a second opinion, Dr. Acosta in particular. I contacted Dr. Acosta, who kindly accepts the consultation and will see the patient tomorrow. - Continue Aspirin 81mg and Plavix 75mg daily. - Continue atorvastatin 80 mg daily. - beta melody held on admission d/t hypotension, which resolved. Will resume home Carvedilol. - Nitro and morphine PRN - Normal lipid panel. # Possible community acquired pneumonia, acute. Present on admission. - In retrospect, we do not think the patient has pneumonia. His symptoms were likely cardiac-related. - CXR showed increased right basilar opacity possibly representing atelectasis versus developing pneumonia. - Procalcitonin mildly elevated at 0.28. Will check Procal tomorrow. - WBC elevated with left shift on admission, resolved now. - Ceftriaxone and azithromycin IV was given for 2 days. - No sputum available for culture, blood cultures pending. - Urine Legionella and Strep pneumo antigens negative. - Continue to monitor CBC. # Acute kidney injury. Present on admission. Resolved. - Baseline Cr 0.9. Possibly due to dehydration. - Avoid nephrotoxic agents. # Type 2 diabetes mellitus, uncontrolled, chronic. - Elevated blood glucose. A1c 8.0. - Increase Lantus 5 units to 7 units qhs - Humalog medium dose correctional scale - Hold home glipizide and Metformin. # Hypertension, chronic - Pt had low-normal BP and thus carvedilol was held. However his BP has increased and will resume Carvedilol today. - Bowel regimen as needed - Antiemetic as needed Patient is admitted under inpatient status with expected length of stay greater than 2 midnights due to severity of presenting symptoms, risk of adverse event, and complexity of treatment plan. Dispo: Likely to be discharged tomorrow if family choose not to pursue further invasive procedures. Pain Evaluation: Adequate Pain Control GI Prophylaxis: Not indicated VTE Prophylaxis: Sub-Q Heparin (Unfractionated) Resuscitation Status: CPR: Attempt Resuscitation Attending Statement Patient was seen and examined with house staff. Agree with all attached documentation. Donato Ayala DO Apr 15, 2017 06:51 Kev Horowitz MD Apr 16, 2017 15:47
--- NOTE | 2017-04-15 16:40 | NUR ---
Social Work Note: Initial Assessment Data& Assessment: EMR Reviewed. SW met with pt and pt family at bedside to discuss discharge planning, SW role explained. Zia Martinez is a 86 year old male admitted on 04/13/2017 for IA pneumonia. Pt has Medicare and [facility] insurance coverage. Pt sees Abram Ahn for primary care. Pt lives in [place] with his spouse in a one level home and is independent at baseline. Pt drives at baseline and normally does not require any DME. Pt is currently a 1PA in his room. Pt does not have HH hx and has been to a SNF 12 years ago but "will not return to a SNF ever again" per pt granddaughter. Pt does not have LTC insurance or VA benefits. Pt family provided with DPOA/Advance Directive paperwork to review and complete when possible. Pt family plans to transport pt home when medically ready. PT consult pending. SW to follow for PT recommendations and MD orders. Pt and pt family denies any needs at this time. SW to continue to follow. Plan: Anticipated discharge home via POV when medically ready. SW to follow up with pt family regarding discharge planning pending PT recommendations and MD orders. Pt and pt family denies any needs at this time. SW to continue to follow. CHAU Waggoner Addendum: 04/15/17 at 1645 by LEXIE GALLEGO Amended: Links added.
[2017-04-15] MEDS ORDERED: Heparin 5,000 Unit/mL Inj SUBQ SCH (20:30)
[2017-04-15] MEDS ORDERED: Insulin GLARgine 100 Unit/mL Syringe SUBQ SCH (21:00)
[2017-04-16] VITALS (8 sets, daily range): BP systolic 102–136; BP diastolic 54–91; PULSE 55–84; RESP 18–20; O2SAT 93–96
[2017-04-16] MEDS: Sodium Chloride LOK Flush 10 mL Syringe IVFLUSH SCH ×4 (00:11→22:20)
[2017-04-16 00:16] LABS: Magnesium 1.7 mg/dL (1.6-2.6)
[2017-04-16] MEDS: Heparin 25K Unit/500mL 0.45 NS 25,000 UNIT in IV Premix 1 EACH IV SCH (01:43)
--- NOTE | 2017-04-16 03:45 | NUR ---
Chestpain 2255 - Pt. developed sudden onset of chestpain and SOB. HR 49, BP 107/46. MD notified (Dr. Henson), EKG obtained. Repeat vitals @ 2305 BP 94/53, HR 38. Tele: Bigeminy runs and 2 nd degree HB, with 2:1 conduction . Order to hold Carvedilol and NTG, with consideration of rate and blood pressure. 2315 BP 94/44, HR 49 and pain still present. Stat Mg/K, troponin drawn. Gave 0.5mg Morphine IV per MD orders, and repeated second dose 0.5mg, with good resolve. Denies SOB, pain, and resting with eyes closed. Heparin gtt restarted, PTTs order per protocol. Care continues -
[2017-04-16] MEDS: 0.9% Sodium Chloride 1,000 ML IV SCH ×2 (04:00→14:10)
--- NOTE | 2017-04-16 05:10 | NUR ---
Pain/Telemetry Patient indicates pain now resolved, hemodynamics improving, and continues to rest with eyes closed. Granddaughter at bedside. Telemetry shows SR in 60's, with PVC's. Heparin drip continues to infuse, labs ordered per protocol.
[2017-04-16 08:16] LABS: BASOPHILS % (AUTO) 0.2 % (0-3); EOSINOPHILS % (AUTO) 0.3 % (0-5); MONOCYTES % (AUTO) 11.6 % (4-12); Mean Corpuscular Hemoglobin 28.6 pg (27.0-35.0); Mean Corpuscular Volume 83.9 fL (81-100); NEUTROPHILS % (AUTO) 70.4 % (40-74); Platelet Count 237 bil/L (150-400)
[2017-04-16] MEDS: Insulin LISPRO 300 Unit/3 mL Inj SUBQ SCH ×4 (08:42→22:20)
[2017-04-16] MEDS: Heparin Protocol Boluses IVPUSH PRN ×3 (08:43→20:02)
[2017-04-16 09:15] LABS: TROPONIN T 1.88 ug/L (0.0-0.011)
--- NOTE | 2017-04-16 11:29 | NUR ---
Evaluation completed. Please go to "Notes" then click on "Assessments and Notes" (bottom left corner of screen). Then select appropriate discipline tab on top of screen.
[2017-04-16] MEDS ORDERED: Insulin GLARgine 100 Unit/mL Syringe SUBQ ONE (14:40)
[2017-04-16] MEDS ORDERED: 0.9% Sodium Chloride 1,000 ML IV PRN (17:47)
--- NOTE | 2017-04-16 18:15 | PCM.PNMED ---
Subjective Date of Service Apr 16, 2017 Subjective Zia Martinez is an 86 year old man with a history of CAD with five vessel CABG, hypertension and diabetes mellitus type 2 who presents with weakness and chest pain. Admitted for acute STEMI. Overnight: The patient had an episode of chest pain. Today: The patient is feeling well and denies any pain. He is not short of breath. He only complains of generalized weakness. The remainder of ROS is negative except as noted above. Exam Vital Signs Vital Sign - Last Date Time Temp Pulse Resp B/P Pulse Ox O2 Delivery O2 Flow Rate FiO2 04/16/17 12:36 36.8 62 20 102/65 93 Room Air 04/16/17 04:07 2.00 Intake and Output 04/15/17 04/15/17 04/16/17 Cumulative From/Thru 15:00 23:00 07:00 04/13/17 22:46 - 04/16/17 06:54 Intake Total 425 ml 642 ml 317 ml 5770 ml Output Total 400 ml 1150 ml Balance 425 ml 242 ml 317 ml 4620 ml Intake Oral 240 ml 120 ml 240 ml 1020 ml IV Total 185 ml 522 ml 77 ml 4750 ml Output Urine Total 400 ml 1150 ml # Voids 1 4 # Bowel Movements 1 1 Exam General: Alert, Oriented X3, Cooperative, No acute distress Head: Normocephalic, atraumatic. External ears normal. Eyes: PERRLA, EOMI. Anicteric sclerae. Mouth: Mouth normal, Mucous membranes moist/pink Neck: Neck supple with full range of motion. Chest& Lungs: Clear to auscultation bilaterally with no crackles, wheezes, or rhonchi. Cardiovascular: Regular rate/rhythm, Normal S1, Normal S2, II/ systolic murmur. Abdomen: Non-tender, Non-distended, No masses, Normoactive bowel tones, Soft Extremities: No cyanosis/clubbing/edema bilaterally Neurological: Grossly neurologically intact. Normal speech IVs and Medications Medications Reviewed: Medications were reviewed in detail Lab and Diagnostics Result Diagram: 04/16/17 0755 04/16/17 0755 X-Rays, CTs and MRIs CT BRAIN WITHOUT CONTRAST IMPRESSION: 1. No acute intracranial process. 2. Moderate atrophy and chronic microvascular ischemic changes. Dictated by: Adelita Aquino M.D. on 04/13/2017 at 21:28 X-RAY CHEST ONE VIEW, PORTABLE IMPRESSION: Slight appearance of increased right basilar opacity possibly representing atelectasis versus developing pneumonia. Dictated by: Adelita Aquino M.D. on 04/13/2017 at 21:44 Assessment & Plan Zia Martinez is an 86 year old man with a history of CAD with five vessel CABG, hypertension and diabetes mellitus type 2 who presents with weakness and chest pain. Admitted for acute STEMI. Acute inferior STEMI. Present on admission. - Hx of CAD with 5x CABG. - Cardiology consulted in the ED and did not recommend urgent catheterization. label folder was done this morning 04/15, which showed severe CAD in both [place] and graft vessels, notably total occlusion in the RCA and the saphenous vein graft to the posterolateral branch of the RCA. There is also a tight ulcerated 80% lesion in the mid left subclavian with significant plaque burden that is at risk for an embolic shower. - Telemetry continues to show several runs of 2nd degree heart block - Echocardiogram shows severely reduced systolic function (EF 25-30%) and moderate global hypokinesis with akinesis of the inferior and inferolateral wall. - Given his age and risk factors, Dr. Bowman recommended conservative management with medications. Unsure if patient is a candidate for a pacemaker. Will need to discuss with family about this as well. - Patient's family requested a second opinion, Dr. Acosta in particular. I contacted Dr. Acosta, who kindly accepts the consultation and will see the patient tomorrow. - Final decision to proceed with pacemaker tomorrow. - Continue Aspirin 81mg and Plavix 75mg daily. - Continue atorvastatin 80 mg daily. - beta melody held on admission d/t hypotension, which resolved. Will resume home Carvedilol. - Nitro and morphine PRN - Normal lipid panel. Possible community acquired pneumonia, acute. Present on admission. - In retrospect, we do not think the patient has pneumonia. His symptoms were likely cardiac-related. - CXR showed increased right basilar opacity possibly representing atelectasis versus developing pneumonia. - Procalcitonin mildly elevated at 0.28 with increase but still ultimately a normal value. - WBC elevated with left shift on admission, resolved now. - Ceftriaxone and azithromycin IV was given for 2 days. - No sputum available for culture, blood cultures negative x2 days - Urine Legionella and Strep pneumo antigens negative. - Continue to monitor CBC. Acute kidney injury. Present on admission. Resolved. - Baseline Cr 0.9. Possibly due to dehydration. - Avoid nephrotoxic agents. Type 2 diabetes mellitus, uncontrolled, chronic. - Elevated blood glucose. A1c 8.0. - Increase Lantus 5 units to 7 units qhs - Humalog medium dose correctional scale - Hold home glipizide and Metformin. Hypertension, chronic - Pt had low-normal BP and thus carvedilol was held. However his BP has increased and will resume Carvedilol today. - Bowel regimen as needed - Antiemetic as needed Patient is admitted under inpatient status with expected length of stay greater than 2 midnights due to severity of presenting symptoms, risk of adverse event, and complexity of treatment plan. Dispo: Likely to be discharged tomorrow if family choose not to pursue further invasive procedures. GI Prophylaxis: Not indicated VTE Prophylaxis: Sub-Q Heparin (Unfractionated) Resuscitation Status: CPR: Attempt Resuscitation Attending Statement Patient was seen and examined with housestaff. Agree with all attached documentation. Michelle Soto DO Apr 16, 2017 15:01 Kev Horowitz MD Apr 17, 2017 12:45
--- NOTE | 2017-04-16 20:00 | NUR ---
heparin/activity Pt. denies having any CP or SOB. Tele has been reading SR-SBrady, ranging from 50s-60s. 1st deg AV block, occassional 2degree with missed beats, 2-1. As well as PVC, per electroencephalograph technician. Dr. De and Dr. Acosta made aware. Pt. up and ambulatory to bathroom with 1 sba, with only generalized weakness as chief complaint. Last PTT reading 41.7; pt. was 1000 unit bolus and gtt increased from 900 units to 950units/hr. Pt. has consented to Pacemaker placement by Dr. Chavarria 04/17/17 AM. Consent to be signed. Report given to Zohreh, Primary RN to continue care.
[2017-04-16] MEDS: Insulin GLARgine 100 Unit/mL Syringe SUBQ SCH (22:20)
[2017-04-17] VITALS (17 sets, daily range): BP systolic 113–147; BP diastolic 63–91; PULSE 69–81; RESP 16–27; O2SAT 91–98
--- NOTE | 2017-04-17 00:20 | CONS ---
[address] [address] CONSULTATION REPORT PATIENT: JOSE CHAPIN : 1930 MR#: [id number] ADMIT: 04/13/2017 JOB ID: [id number] DATE OF SERVICE: 04/16/2017 REQUESTING PHYSICIAN: 1. Kev Horowitz MD 2. Resident: Hari Bray DO REASON FOR CONSULTATION: Second opinion in a patient who is an 86-year-old gentleman with known history of coronary artery disease status post five-vessel bypass surgery, history of hypertension, hyperlipidemia, who was admitted to the hospital with diagnosis of acute inferior wall myocardial infarction. Patient was admitted to the hospital on April 13, 2017. Patient dates these symptoms back to or Thursday prior to this Thursday when he was admitted to the hospital. Patient stated that he was mowing the lawn and he overdid mowing his lawn. Following that, he had symptoms of chest pressure, however, he did not report or tell any of his family members. Subsequently, on Thursday and Thursday, he had episodes of chest discomfort with dizziness and presyncope. He had falls at least two times prior to admission to the hospital. The day prior to his admission he had an episode of chest pain which resolved spontaneously. However, he was brought to the emergency department on April 13, 2017, not complaining of chest pains, but after passing out. Upon evaluation in the emergency department, an ST-elevation was noted in the inferior leads and was provisionally admitted with an acute inferior myocardial infarction. Although on detailed history was delayed presentation and as his chest pain symptoms had happened more than 12 hours prior to admission. Nonetheless, patient was admitted to the hospital and the troponin level was found to be elevated. EKG showed normal sinus rhythm with acute inferior myocardial infarction with age-indeterminate. On the subsequent day, coronary angiography was performed by carpenter packing refrigeration tech, Dr. Jeffrey Bowman. Please see the echo catheterization report. It was deemed that the patient had severe diffuse three-vessel disease with multiple discrete lesions, both hemodynamic and nonhemodynamic stenoses in the bypass grafts. He had reasonably functioning of T-graft anastomosing into the obtuse marginal and diagonal branches. Ejection fraction was severely depressed. The patient remained pain free while he was in the hospital and was on telemetry. Standard treatment for his acute myocardial infarction was maintained. The patient was given aspirin, Plavix, atorvastatin, beta-blockers were held, and nitro and morphine were administered on a p.r.n. basis. During the telemetry, patient had several runs of junctional rhythm, 2:1 AV block and sinus pauses. Overall heart rhythm was found to be low. PAST MEDICAL HISTORY: As noted in the chart. 1. Hypertension. 2. Type 2 diabetes. 3. Coronary artery disease. PAST SURGICAL HISTORY: Significant for coronary artery bypass surgery performed at [facility]. PHYSICAL EXAMINATION: His blood pressure is 108/58, with a pulse of 48, and oxygen saturation of 95% on room air. He is alert, oriented, not in any distress. He is hard of hearing. No elevated JVD. Chest has bibasilar crackles. S1, S2 normal, regular. No obvious murmur was heard on my clinical examination. Abdomen is benign. Lower extremities: No pedal edema. CURRENT MEDICATIONS: Include. 1. Aspirin. 2. Atorvastatin 80 mg daily. 3. Morphine p.r.n. for pain. 4. Atropine 1 mg p.r.n. for bradycardia. 5. Nitroglycerin p.r.n. for chest pains. 6. Both Lantus and regular insulin for his diabetes management. ASSESSMENT: 1. Acute ST-elevation myocardial infarction with late presentation exceeding 12 hours. Therefore, angioplasty has very limited benefit at this time. Therefore, I agree with the recommendation made by Dr. Bowman of performing any intervention given his age and severity and extent of his coronary artery disease. On left ventricular cineangiography the inferior wall is severely hypokinetic, likely this is an acute inferior myocardial infarction. Associated with the myocardial infarction, there is underlying lillian arrhythmias, may or may not represent concomitant sick sinus syndrome, though bradycardia with heart blocks is known electrical complications of an acute inferior myocardial infarction.If it persists for more than 72 hrs, it is a reasonable consideration for pacemaker implantation. 2. Ischemic cardiomyopathy with ejection fraction of 25% to 30%. Severe hypokinesis of the inferior wall. The patient is currently not on any BROCK or ARBs. Granted, given his sinus bradycardia and intermittent high-grade blocks, beta-blockers are not indicated and should be held for now, but certainly BROCK inhibitors can be initiated, given his ejection fraction of 25% to 30%. 3. Atrioventricular block. 4. Sick sinus syndrome versus AV block secondary to acute inferior myocardial infarction. Patient is post coronary event 72 hours. The patient is having runs of junctional rhythm as well as intermittent second-degree AV block. Patient is likely a candidate for pacemaker implantation. I had a detailed conversation with the family members, who agreed to proceed for pacemaker implant. I wrote the orders and Dr. Moore will be performing pacemaker implantation tomorrow. 5. Diabetes. Patient is currently on insulin. 6. Hyperlipidemia. The patient is on 80 mg of atorvastatin, which is unreasonably higher dose at his age; also the overall benefit of statins in octogenarians is unclear. Therefore, my recommendation is to decrease the atorvastatin to 40 mg daily. 7. Hypertension. Blood pressure is adequately controlled. RECOMMENDATION: 1. Start BROCK and ARB. 2. Hold beta-blockers. 3. Schedule for permanent pacemaker implant. 4. Continue heparin post IN for 4-5 days. 5. Strict input and output charting. 6. Pacing and defibrillation pads in the room. Thank you for allowing me to participate in the care of your patient. Please feel free to give me a call should you have any questions. JOHANNY
[2017-04-17] MEDS: Heparin 25K Unit/500mL 0.45 NS 25,000 UNIT in IV Premix 1 EACH IV SCH (03:45)
[2017-04-17] MEDS: Heparin Protocol Boluses IVPUSH PRN (05:09)
--- NOTE | 2017-04-17 06:29 | NUR ---
Tele No c/o chest pain, Tele SR with 1st AVB with PACs and PVCs. Around 2235 Pt went into 3rd AVB briefly for about 3 seconds, then back to baseline, SR 1st AVB and PACs and PVCs with HR 70-80s. Pt remained asymptomatic and BPs remain stable. IV Heparin drip infusing per Cardiac Protocol, currently at 1100 units/hour. Next PTT at 1030 AM. Pt compliant with NPO status for planned Pacemaker placement in the AM.
[2017-04-17] MEDS: Insulin LISPRO 300 Unit/3 mL Inj SUBQ SCH ×4 (08:00→20:26)
[2017-04-17] MEDS: Sodium Chloride LOK Flush 10 mL Syringe IVFLUSH SCH ×3 (08:44→23:56)
--- NOTE | 2017-04-17 10:49 | PCM.PNMED ---
Subjective Date of Service Apr 17, 2017 Subjective Overnight: No complaint of chest pain overnight. Tele SR with 1st AVB with PACs and PVCs. Around 2235 Pt went into 3rd AVB briefly for about 3 seconds, then back to baseline, SR 1st AVB and PACs and PVCs with HR 70-80s. Pt remained asymptomatic and BPs remain stable. IV Heparin drip infusing per Cardiac Protocol. Today: The patient is feeling well and denies any symptoms. He denies CP or shortness of breath. He only complains of generalized weakness. Exam Vital Signs Vital Sign - Last Date Time Temp Pulse Resp B/P Pulse Ox O2 Delivery O2 Flow Rate FiO2 04/17/17 07:43 36.6 70 18 125/71 95 Room Air 04/16/17 04:07 2.00 Intake and Output 04/16/17 04/16/17 04/17/17 Cumulative From/Thru 15:00 23:00 07:00 04/13/17 22:46 - 04/17/17 06:04 Intake Total 762 ml 286 ml 6818 ml Output Total 200 ml 475 ml 1825 ml Balance 562 ml -189 ml 4993 ml Intake Oral 560 ml 50 ml 1630 ml IV Total 202 ml 236 ml 5188 ml Output Urine Total 200 ml 475 ml 1825 ml # Voids 1 3 8 # Bowel Movements 1 Exam General: Alert, Oriented X3, Cooperative, No acute distress Head: Normocephalic, atraumatic. External ears normal. Eyes: PERRLA, EOMI. Anicteric sclerae. Mouth: Mouth normal, Mucous membranes moist/pink Neck: Neck supple with full range of motion. Chest& Lungs: Clear to auscultation bilaterally with no wheezes or rhonchi. Mild rales at the bases. Cardiovascular: Regular rate/rhythm, Normal S1, Normal S2, II/ systolic murmur. Abdomen: Soft, Non-tender, Non-distended, No masses, Normoactive bowel tones. Extremities: No cyanosis/clubbing/edema bilaterally. Neurological: Grossly neurologically intact. Normal speech IVs and Medications Medications Reviewed: Medications were reviewed in detail Lab and Diagnostics Result Diagram: 04/16/17 0755 04/17/17 0350 X-Rays, CTs and MRIs CT BRAIN WITHOUT CONTRAST IMPRESSION: 1. No acute intracranial process. 2. Moderate atrophy and chronic microvascular ischemic changes. Dictated by: Adelita Aquino M.D. on 04/13/2017 at 21:28 X-RAY CHEST ONE VIEW, PORTABLE IMPRESSION: Slight appearance of increased right basilar opacity possibly representing atelectasis versus developing pneumonia. Dictated by: Adelita Aquino M.D. on 04/13/2017 at 21:44 Assessment & Plan Zia Martinez is an 86 year old man with a history of CAD with five vessel CABG, hypertension and diabetes mellitus type 2 who presents with weakness and chest pain. Admitted for acute STEMI. Acute inferior STEMI. Present on admission. - Hx of CAD with 5x CABG. - Cardiology consulted in the ED and did not recommend urgent catheterization. ship laborer was done on 04/15, which showed severe CAD in both [place] and graft vessels, notably total occlusion in the RCA and the saphenous vein graft to the posterolateral branch of the RCA. There is also a tight ulcerated 80% lesion in the mid left subclavian with significant plaque burden that is at risk for an embolic shower. - Telemetry continues to show several runs of 1st and 2nd degree heart block - Given his age and risk factors, Dr. Bowman recommended conservative management with medications. - Per patient's family request for a second opinion, Dr. Acosta was consulted and recommended medical management as well. - Continue Aspirin 81mg and Plavix 75mg daily. - Continue Heparin ggt for a total of 4-5 days post MO. - Per Dr. Acosta's recommendation, will decrease atorvastatin 80 mg to 40mg daily. - beta melody held on admission d/t hypotension, but was resumed after his BP improved. However, in light of the possible sick sinus symptoms vs. AV block, will hold Beta blockage. - Nitro and morphine PRN - Pacing and defibrillation pads in the room. Ischemic cardiomyopathy, chronic. -Echocardiogram shows severely reduced systolic function (EF 25-30%) and moderate global hypokinesis with akinesis of the inferior and inferolateral wall. -Appreciate Dr. Acosta's input. Patient had angioedema with Lisinopril. Will consider adding ARBs after the procedure today and monitor for any sign/symptom of angioedema. -Hold beta blockers per Dr. Acosta's recommendations. -Strict I/O Sick sinus syndrome versus AV block secondary to acute inferior myocardial infarction. -Patient is post coronary event 72 hours. The patient is having runs of junctional rhythm as well as intermittent second-degree AV block. -Dr. Moore will be performing pacemaker implantation today. Possible community acquired pneumonia, acute. Present on admission. - In retrospect, we do not think the patient has pneumonia. His symptoms were likely cardiac-related. - CXR showed increased right basilar opacity possibly representing atelectasis versus developing pneumonia. - Procalcitonin mildly elevated at 0.28 with increase but still ultimately a normal value. - WBC elevated with left shift on admission, resolved now. - Ceftriaxone and azithromycin IV was given for 2 days. - No sputum available for culture, blood cultures negative x2 days - Urine Legionella and Strep pneumo antigens negative. Acute kidney injury. Present on admission. Resolved. - Baseline Cr 0.9. Possibly due to dehydration. - Avoid nephrotoxic agents. Type 2 diabetes mellitus, uncontrolled, chronic. - Elevated blood glucose. A1c 8.0. - Increase Lantus 5 units to 10 units qhs - Humalog medium dose correctional scale - Hold home glipizide and Metformin. Hypertension, chronic, well controlled. - Will add ARB tonight. Monitor for signs/symptoms of angioedema. - Bowel regimen as needed - Antiemetic as needed Patient is admitted under inpatient status with expected length of stay greater than 2 midnights due to severity of presenting symptoms, risk of adverse event, and complexity of treatment plan. Dispo: Likely to be discharged in a couple days. Pain Evaluation: Adequate Pain Control GI Prophylaxis: Not indicated VTE Prophylaxis: Sub-Q Heparin (Unfractionated) Resuscitation Status: CPR: Attempt Resuscitation Attending Statement Patient was seen and examined with housestaff. Agree with all attached documentation. Donato Ayala DO Apr 17, 2017 10:49 Kev Horowitz MD Apr 17, 2017 12:51
--- NOTE | 2017-04-17 10:49 | NUR ---
Off unit for pacemaker placement Patient A&O X3. SpO2: mid 90's on RA. Tele: Sinus 70's with PVC's. VSS. Heparin gtt DC'd at [address] Moore orders. Pt ambulating in room with SBA and use of FWW without report of CP, SOB or dizziness. UPPER [place]. Pleasant and cooperative with care. Granddaughter Petra at bedside assisting with care.
[2017-04-17] MEDS ORDERED: Vancomycin 1,000mg/200 mL NS IV ONE (11:05)
[2017-04-17] MEDS ORDERED: fentaNYL-PF 50 mCg/mL 2 mL Inj ONE (11:33)
--- NOTE | 2017-04-17 13:39 | OP ---
[address] [address] OPERATIVE REPORT PATIENT: JOSE CHAPIN : 1930 MR#: [id number] ADMIT: 04/13/2017 JOB ID: [id number] DATE OF SURGERY: 04/17/2017 PREOPERATIVE DIAGNOSIS(ES): Mobitz II AV block. POSTOPERATIVE DIAGNOSIS(ES): Mobitz II AV block. PROCEDURES PERFORMED: 1. Dual-chamber pacemaker implantation. 2. Fluoroscopy. SURGEON: Environmental Engineering Technician: Júnior Moore MD, electrophysiology attending. FOOD SERVICES MANAGER: Mei Barrera. IMPLANTED DEVICES: 1. [employer] pulse generator, model 2240, serial number [id number]. 2. Right atrial lead [employer] 2088TC, 52 cm, serial number [id number]. 3. RV lead [employer] 2088TC, 58 cm, serial number [id number]. ANESTHESIA: Bolus dosing of Versed and fentanyl was utilized for an appropriate level of sedation. INDICATION: The patient is a pleasant 86-year-old man with coronary artery disease bypass grafting admitted with inferior myocardial infarction who has developed Mobitz II AV block that has persisted despite several days post his MD. After discussion of the risks and benefits of pacemaker implantation, he opted to proceed. PROCEDURE DESCRIPTION: Following informed consent, the patient was taken to the EP laboratory in the fasting nonsedated state, where he was prepped in the usual sterile fashion. The left infraclavicular region was infiltrated with 40 mL of a 50/50 mixture of bupivacaine and lidocaine. Once adequate anesthesia had been achieved, a 3 cm transverse incision was performed 2 cm below the left clavicle and dissection was carried down to the pectoralis fascia. A pocket was then fashioned using a combination of electrocautery and blunt dissection. Once adequate hemostasis had been achieved, access to the left axillary vein was gotten over the first rib with a micropuncture needle twice to deploy two 0.035, 3 mm J guidewires. Over the first of these a [place] tear-away sheath was advanced. Once the sheath was removed, an active fixation lead was advanced to the RV outflow tract and ultimately the RV apex. The lead was affixed in position using its associated active fixation screw. It was connected to the external analyzer and demonstrated appropriately sensed R waves, impedance, and capture threshold. It was checked to 10 V and there was no evidence of diaphragmatic stimulation. Attention was now paid to placement of the right atrial lead. Over another of the previously deployed J guidewires, another [place] tear-away sheath was advanced. Once the guidewire was removed, the active fixation lead was advanced to the right atrial appendage. It was affixed in position using its associated active fixation screw. The lead was connected to the external analyzer and it demonstrated appropriately sensed P waves, impedance, and capture threshold. It was checked to 10 V and there was no evidence of diaphragmatic stimulation. Once the position and accuracy of both leads was confirmed with multiple fluoroscopic views, the leads were anchored to the prepectoralis fascia using their associated anchoring sleeves and two Ethibond sutures. The pocket was then copiously with antibiotic solution. The leads were connected to a generator. The generator was placed in the pocket. It was affixed to the floor using 1-0 Ti-Cron suture. The incision was closed with running layers of absorbable suture. The wound was dressed with skin adhesive and a small dressing at the end of the procedure. The needle, sponge, and instrument counts were correct. COMPLICATIONS: None. ESTIMATED BLOOD LOSS: None. DEVICE MEASURED DATA: 1. Right atrial lead 2.6 mV, 1.25 V at 0.4 msec, 440 ohms. 2. RV lead greater than 12 mV, 0.75 V at 0.4 msec, 540 ohms. FINAL PROGRAM PARAMETERS: DDD 60-130 beats per minute with VIP on. IMPRESSION: Successful dual-chamber pacemaker implantation. PLAN: 1. Stat portable chest x-ray. 2. PA and lateral chest x-ray in the morning. 3. Device interrogation in the morning. 4. IV vancomycin through tomorrow. 5. Doxycycline 100 mg p.o. daily x7 days starting tomorrow. 6. Wound check in one week. ATTENDING STATEMENT: Júnior Moore MD, electrophysiology attending, was present for and supervised/performed all aspects of this procedure.
--- NOTE | 2017-04-17 14:19 | NUR ---
JOHN POST PACEMAKER PT WAS RECEIVED FROM AUXILIARY POWER EQUIPMENT OPERATOR AT 1255. DUAL CHAMBER PM WAS PLACED AND MONITOR SHOWS 100% PACED RHYTHM. INCISION TO LEFT UPPER CHEST C/D/I, ICE BAG APPLIED. POST EKG AND CXR WERE OBTAINED. PT DENIES ANY PAIN AND IS TAKING PO FLUIDS AND MEAL WITHOUT DIFFICULTY. POST PACEMAKER INSTRUCTIONS WERE REVIEWED WITH GRANDDAUGHTER AND PT INCLUDING LIMITATIONS TO USING LEFT ARM AND NEED FOR SLING FOR 24 HOURS. THEY VERBALIZED UNDERSTANDING. REPORT CALLED TO JERO Scott RN AND WILL PLAN TO TRANSPORT BACK TO ROOM BEFORE 1500.
--- NOTE | 2017-04-17 15:09 | NUR ---
JOHN TRANSFER PT AND HIS NURSING CARE WERE TRANSFERRED BACK TO ROOM 2008 AT 1510.
--- NOTE | 2017-04-17 15:29 | NUR ---
Post pacemaker placement: Patient arrived back to room 2008 at 1510. A&O X3. VSS. IV SL X2. R chest dressing has a small dime size shadow in the center, no bruising, no crepitus or pain to touch. Tele: 100% VPaced 70-80. Denies any pain at this time. Reviewed precautions with patient and granddaughter Jennie. Family remains at bedside.
[2017-04-17] MEDS: 0.9% Sodium Chloride 1,000 ML IV SCH ×2 (15:33→22:21)
--- NOTE | 2017-04-17 15:49 | NUR ---
LAURA Attempted but patient was out of room
--- NOTE | 2017-04-17 16:35 | DRSVH ---
PROCEDURE: X-RAY CHEST ONE VIEW, PORTABLE ([id number]) INDICATIONS: For new leads placed TECHNIQUE: One view of the chest was acquired. COMPARISON: [facility], CR, XR CHEST 1VW (PORTABLE), 04/13/2017, 21:01. FINDINGS: Surgical changes and devices: Dual chamber left cardiac pacer has been placed which is in expected po sition. Post median sternotomy. Lungs and pleura: No pleural effusions or pneumothorax. Lungs are clear. Mediastinum: Mediastinal contours appear normal. Heart size is prominent for technique. Bones and chest wall: No suspicious bony lesions. Overlying soft tissues appear unremarkable. IMPRESSION: No immediate complications status post cardiac pacemaker placement. Dictated by: Dwayne Andrew [facility] Interpreted: Daniel Graves MD on 04/17/2017 at 13:19 Approved by: Daniel Graves M.D. on 04/17/2017 at 16:33
[2017-04-17] MEDS: Insulin GLARgine 100 Unit/mL Syringe SUBQ SCH (20:26)
[2017-04-18] VITALS (7 sets, daily range): BP systolic 114–150; BP diastolic 62–79; PULSE 73–84; RESP 18–20; O2SAT 94–95
[2017-04-18] MEDS ORDERED: Vancomycin Inj 1,000 MG in IV Premix 1 EACH IV ONE (00:25)
--- NOTE | 2017-04-18 01:22 | PROG NOTE ---
[address] [address] PROGRESS NOTE PATIENT: JOSE CHAPIN : 1930 MR#: [id number] ADMIT: 04/13/2017 JOB ID: [id number] DATE: 04/17/2017 CHIEF COMPLAINT: Chest pain. SUBJECTIVE: The patient is basically an 86-year-old man with history of coronary artery disease, status post five-vessel CABG, present with acute inferior infarct April 13, 2017. Cath was characterized by occluded vein graft to posterolateral branch of right coronary artery. He also had a complicated lesion in the proximal portion of the left subclavian artery with resulting compromise of the left internal mammary flow. So far, in the course of hospitalization, pt was seen in consultation and had a diagnostic cath by Dr. Bowman April 14. Then per family request he was seen for a second opinion by Dr. Haris Acosta on April 16, 2017. The patient's LV systolic function is severely depressed and he had a junctional rhythm with also sinus rhythm with 2:1 AV block. Given his advanced age, he was offered dual-chamber permanent pacemaker and underwent angiogram device implant today with Dr. Moore. Device implant was relatively uncomplicated. I visited with him after the procedure and the patient had no complaints. He is accompanied today by his family, his Eugenia, his daughter Petra and multiple other children and grandchildren. PHYSICAL EXAMINATION: Vital signs: Temperature 36.6, blood pressure 113/73 up to 147/63, pulse 69 up to 109 beats per minute. He is satting 91-98% on room air. Very pleasant older gentleman lying at a 45-degree angle in bed in no apparent distress. Eyes: No scleral icterus. Heart: Normal S1, S2. No murmurs, rubs, or gallops. Lungs with crackles at bases bilaterally. Abdomen is soft, positive bowel sounds. No hepatosplenomegaly. Extremities: No clubbing, cyanosis, or edema. Skin: There is a left infraclavicular fossa scar where the pacemaker was just implanted and he has an ice pack over it. CURRENT MEDICATIONS: 1. Lipitor 40 mg daily. 2. Lispro sliding scale insulin. 3. Lantus 10 units every night. 4. Plavix 75 mg daily. 5. Aspirin 81 mg daily. 6. Vancomycin IV given once before the procedure. 7. Doxycycline 100 mg twice a day. ASSESSMENT AND PLAN: 1. 2:1 conduction system abnormality. s/p dual-chamber permanent pacemaker implanted by Dr. Moore. 2. Cardiomyopathy. Patient is allergic to BROCK inhibitor. I will find out a little bit more about specifically the nature of this allergy when I see him tomorrow during rounds and will have a low threshold to initiate it if his blood pressure, creatinine and kidney function allow. I think it is reasonable for him to continue on dual antiplatelet therapy for medical management of unfortunately late presentation ST-elevation AR. As an outpatient he can see either Dr. Bowman or Dr. Acosta and discuss in more detail the potential benefit he can glean from percutaneous intervention to the subclavian. This is not an urgent admission and we can certainly reflect on it and take into account the patient's wishes at this time. The patient did not receive ICD so he is certainly at risk for sudden cardiac . I recommend initiating Toprol-XL. We are going to start him on a low dose of 25 mg daily and monitor him closely on this medicine. 3. Lipid management. The patient's most recent lipid panel during this hospitalization demonstrated t HDL 39, LDL 104, which is not quite the goal. As an outpatient he was on simvastatin 40 mg daily. 4. Diabetes. As an outpatient, the patient was on metformin and this oral hypoglycemic is on hold to reduce the risk of metabolic acidosis in this patient. Thank you very much for the opportunity to participate in this patient's care. JOHANNY
[2017-04-18 02:50] LABS: BASOPHILS % (AUTO) 0.3 % (0-3); EOSINOPHILS % (AUTO) 1.8 % (0-5); MONOCYTES % (AUTO) 11.4 % (4-12); Mean Corpuscular Hemoglobin 28.7 pg (27.0-35.0); Mean Corpuscular Volume 83.5 fL (81-100); NEUTROPHILS % (AUTO) 67.2 % (40-74); Platelet Count 249 bil/L (150-400)
[2017-04-18 03:53] LABS: Magnesium 1.6 mg/dL (1.6-2.6)
--- NOTE | 2017-04-18 06:38 | NUR ---
S/P Pacemaker Placement Left chest dressing CDI, with scant amount of shadow drainage noted on dressing. Pacer site warm to the touch, ice packs prn comfort. Tele SR 1st AVB with PVCs and occ V-Paced in the 70s to 80s. Post procedure dose of IV Vancomycin infused per MDs orders. Pt reminded of Pacemaker Precautions. VS stable and afebrile. No c/o SOB, RA sats 94-98%.
[2017-04-18] MEDS: 0.9% Sodium Chloride 1,000 ML IV SCH ×2 (08:25→18:25)
[2017-04-18] MEDS ORDERED: MeTOProlol XL 25 mg ER24 Tablet PO SCH (08:30)
[2017-04-18] MEDS: Sodium Chloride LOK Flush 10 mL Syringe IVFLUSH SCH ×2 (08:41→17:27)
[2017-04-18] MEDS: Insulin LISPRO 300 Unit/3 mL Inj SUBQ SCH ×4 (08:50→21:28)
--- NOTE | 2017-04-18 09:41 | DRSVH ---
PROCEDURE: X-RAY CHEST, TWO VIEWS ([id number]) INDICATIONS: For new lead placement TECHNIQUE: 2 views of the chest were acquired. COMPARISON: [facility], CR, XR CHEST 1VW (PORTABLE), 04/13/2017, 21:01. [facility], CR, XR CHEST 1VW (PORTABLE), 04/17/2017, 12:56. FINDINGS: Surgical changes and devices: A left chest wall dual-lead pacemaker is demonstrated with the leads ex tending into the right atrium and right ventricle. Lungs and pleura: No pleural effusions or pneumothorax. There are mild linear basilar opacities in the left base likely representing scarring or atelectasis. Mediastinum: Mediastinal contours are unchanged. Heart size is normal. Bones and chest wall: No suspicious bony abnormalities. Soft tissues appear unremarkable. IMPRESSION: 1. New pacemaker demonstrated with leads extending into the right atrium and right ventricle. 2. No evidence of pneumothorax. Dictated by: Jimmy Saenz M.D. on 04/18/2017 at 9:32 Approved by: Jimmy Saenz M.D. on 04/18/2017 at 9:33
--- NOTE | 2017-04-18 12:47 | PCM.PNMED ---
Subjective Date of Service Apr 18, 2017 Subjective Zia Martinez is an 86 year old man with a history of CAD with five vessel CABG, hypertension and diabetes mellitus type 2 who presents with weakness and chest pain. Admitted for acute STEMI. Overnight: No acute events. Today: The patient underwent a pacemaker placement yesterday. He states he is feeling well today. He denies any pain at the pacemaker site or bleeding. He denies any fevers overnight. The remainder of ROS is negative except as noted above. Exam Vital Signs Vital Sign - Last Date Time Temp Pulse Resp B/P Pulse Ox O2 Delivery O2 Flow Rate FiO2 04/18/17 08:52 36.6 84 18 150/79 94 Room Air 04/16/17 04:07 2.00 Intake and Output 04/17/17 04/17/17 04/18/17 Cumulative From/Thru 15:00 23:00 07:00 04/13/17 22:46 - 04/18/17 05:21 Intake Total 510 ml 519 ml 7847 ml Output Total 550 ml 886 ml 3261 ml Balance -40 ml -367 ml 4586 ml Intake Oral 436 ml 300 ml 2366 ml IV Total 74 ml 219 ml 5481 ml Output Urine Total 550 ml 886 ml 3261 ml # Voids 8 # Bowel Movements 1 Exam General: Alert, Oriented X3, Cooperative, No acute distress Head: Normocephalic, atraumatic. External ears normal. Eyes: PERRLA, EOMI. Anicteric sclerae. Mouth: Mouth normal, Mucous membranes moist/pink Neck: Neck supple with full range of motion. Chest& Lungs: Clear to auscultation bilaterally with no wheezes or rhonchi. Mild rales at the bases. Left chest wall with pacemaker implanted with minimal signs of bleeding. No signs of infection. Cardiovascular: Regular rate/rhythm, Normal S1, Normal S2, II/ systolic murmur. Abdomen: Soft, Non-tender, Non-distended, No masses, Normoactive bowel tones. Extremities: No cyanosis/clubbing/edema bilaterally. Neurological: Grossly neurologically intact. Normal speech IVs and Medications Medications Reviewed: Medications were reviewed in detail Lab and Diagnostics Result Diagram: 04/18/17 02404/18/17 024 X-Rays, CTs and MRIs CT BRAIN WITHOUT CONTRAST IMPRESSION: 1. No acute intracranial process. 2. Moderate atrophy and chronic microvascular ischemic changes. Dictated by: Adelita Aquino M.D. on 04/13/2017 at 21:28 X-RAY CHEST ONE VIEW, PORTABLE IMPRESSION: Slight appearance of increased right basilar opacity possibly representing atelectasis versus developing pneumonia. Dictated by: Adelita Aquino M.D. on 04/13/2017 at 21:44 Assessment & Plan Zia Martinez is an 86 year old man with a history of CAD with five vessel CABG, hypertension and diabetes mellitus type 2 who presents with weakness and chest pain. Admitted for acute STEMI. Acute inferior STEMI. Present on admission. - Hx of CAD with 5x CABG. - Cardiology consulted in the ED and did not recommend urgent catheterization. casting house laborer was done on 04/15, which showed severe CAD in both [place] and graft vessels, notably total occlusion in the RCA and the saphenous vein graft to the posterolateral branch of the RCA. There is also a tight ulcerated 80% lesion in the mid left subclavian with significant plaque burden that is at risk for an embolic shower. - Telemetry showed 2nd degree heart block - Given his age and risk factors, Dr. Bowman recommended conservative management with medications. - Per patient's family request for a second opinion, Dr. Acosta was consulted and recommended medical management as well. - Continue Aspirin 81mg and Plavix 75mg daily. - Continue Heparin ggt for a total of 4-5 days post CO. - Continue atorvastatin 40mg daily. - Restart Carvedilol. Increase Losartan to 25 mg daily. Goal systolic per cardiology is less than 130 mmHg. Second and third degree heart block, s/p pacemaker placement -Doxycycline, physical therapy, arm sling. -Follow up with cardiology for device check and wound check at the pacemaker clinic. 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 -Appreciate Dr. Acosta's input. Patient had angioedema with Lisinopril. Tolerating ARBs well. -Strict I/O, low sodium diet. Possible community acquired pneumonia, ruled out. Acute kidney injury. Present on admission. Resolved. - Baseline Cr 0.9. Possibly due to dehydration. - Avoid nephrotoxic agents. Type 2 diabetes mellitus, uncontrolled, chronic. - Elevated blood glucose. A1c 8.0. - Increase Lantus 10 units qhs - Humalog medium dose correctional scale. - Restart home Metformin. On discharge initiate empagliflozin 10 mg once daily. Follow up with Dr. Loza in endocrine clinic within one month. Plan to discharge on Metformin and SGLT2 inhibitor. Stop sulfonylurea. May need to restart insulin outpatient. Hypertension, chronic, well controlled. - As above - Bowel regimen as needed - Antiemetic as needed Patient is admitted under inpatient status with expected length of stay greater than 2 midnights due to severity of presenting symptoms, risk of adverse event, and complexity of treatment plan. Dispo: Likely to be discharged home tomorrow. GI Prophylaxis: Not indicated VTE Prophylaxis: Sub-Q Heparin (Unfractionated) VTE Mechanical Devices: Intermittant Pneumatic CD Resuscitation Status: CPR: Attempt Resuscitation Time spent 40 minutes spent in patient assessment in care coordination including review of data with real estate listing consultant Attending Statement I interviewed and examined the patient on rounds today. I agree with the assessment and plan as stated above. Michelle Soto DO Apr 18, 2017 12:15 Campos Loza MD Apr 18, 2017 20:40
--- NOTE | 2017-04-18 15:35 | NUR ---
Shoulder sling Pt forgetful with the restrictions of his left arm. He often sleeps with his left arm above his head and will use it to pull himself up to the side of the bed. Family aware and very kind to help remind him of his post pacer precautions. PT place shoulder sling and also worked with pt to show him new ways to do normal daily routine stuff. Pt still slightly forgetful but wearing shoulder sling.
--- NOTE | 2017-04-18 15:37 | PROG NOTE ---
[address] [address] PROGRESS NOTE PATIENT: JOSE CHAPIN : 1930 MR#: [id number] ADMIT: 04/13/2017 JOB ID: [id number] DATE: 04/18/2017 SUBJECTIVE: The patient has no chest pain. He says he feels okay. OBJECTIVE: Vital signs: Temperature 36.6, blood pressure 115/74 up to 150/79, pulse 76 up to 84 beats per minute, satting 95% on room air. Very pleasant elderly man lying in bed, in no apparent distress. His granddaughter, Petra, is at the bedside. Eyes: No scleral icterus. Heart: Normal S1 and S2. No murmurs. Lungs: Clear to auscultation anteriorly. Abdomen: Soft, positive bowel sounds. No hepatosplenomegaly. Extremities: Warm, well perfused. No clubbing, cyanosis, or edema. Skin: No rashes or lesions. CURRENT MEDICATIONS: 1. Aspirin 81 mg daily. 2. Plavix 75 mg daily. 3. Lipitor 40 mg daily. 4. Lasix 40 mg daily. 5. Carvedilol 6.25 mg twice a day. 6. Losartan 25 mg daily. Lantus and doxycycline and lispro are on a sliding scale. ASSESSMENT AND PLAN: In summary, this is an 86-year-old man. He had [id number] myocardial infarction. He has cardiomyopathy. Troponin-T peaked at 1.89 and then we stopped checking it in the setting of normal renal function. He has multiple cardiovascular issues. 1. Coronary artery disease. He has occluded graft to PL. Otherwise all grafts are patent. His PINTO is in jeopardy because there is a severe subclavian stenosis. The patient says he does not want to proceed with urgent intervention and desires to be discharged home and follow up as an outpatient. I think it is reasonable. 2. Cardiomyopathy. Today we will be titrating his drugs. We initiated a loop diuretic and will be titrating up his losartan to achieve optimal blood pressure control. 3. Heart attack. Following medical management for inferior ST-elevation myocardial infarction, he will benefit from Plavix for a year. 4. Lipid management. He was on simvastatin but will switch him to a high-intensity statin, namely atorvastatin 40 mg daily. 5. Cardiomyopathy. Continue carvedilol 6.25 mg twice a day, increase losartan, add a loop diuretic, and have a low threshold to titrate up the losartan to achieve optimal blood pressure control. Thank you very much for the opportunity to evaluate him.
[2017-04-18] MEDS: Insulin GLARgine 100 Unit/mL Syringe SUBQ SCH (21:23)
[2017-04-19 00:03] VITALS: BP 115/64; PULSE 73; RESP 18; O2SAT 96
[2017-04-19] MEDS: Sodium Chloride LOK Flush 10 mL Syringe IVFLUSH SCH ×2 (00:06→08:09)
[2017-04-19] MEDS: 0.9% Sodium Chloride 1,000 ML IV SCH ×2 (01:04→14:25)
[2017-04-19 02:54] VITALS: BP 124/68; PULSE 72; RESP 16; O2SAT 97
--- NOTE | 2017-04-19 05:50 | NUR ---
Activity/Restful Night Pt up to BR w/ SBA and FWW, gait mostly steady w/ use of FWW, though pt impulsive when needing to use BR, danial alarm on for safety. Pt able to move in bed well though needs frequent reminders regarding left extremity precautions. Pt refuses to wear arm sling despite education. Left island dressing at pacer site w/ minimal old drainage that has not changed overnight. Pt denies pain. At start of shift pt stated some SOB that resolved quickly w/ 2L NC, minutes after pt asked to take O2 off and said SOB had resolved. Pt denied any chest pain and had no further complaints overnight. VSS throughout night, tele VPaced/SR w/ 1st AVB.
[2017-04-19 08:02] VITALS: BP 135/74; PULSE 73; RESP 16; O2SAT 95
[2017-04-19] MEDS: Insulin LISPRO 300 Unit/3 mL Inj SUBQ SCH ×2 (08:09→13:22)
[2017-04-19 08:34] VITALS: PULSE 77
--- NOTE | 2017-04-19 11:59 | PCM.DIMED ---
Donato Ayala DO 04/19/17 1141: Discharge Instructions Date of Service Apr 19, 2017 Dates of Hospitalization Apr 13, 2017 at 22:53 Discharge Diagnosis Discharge Diagnosis Acute inferior STEMI. Present on admission. 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 Possible community acquired pneumonia, ruled out. Acute kidney injury. Present on admission. Resolved. Type 2 diabetes mellitus, uncontrolled, chronic. Hypertension, chronic, well controlled. Medication Instructions Additional med instructions - Continue the Metformin and Glipizide at the current dose. - Inject 20 units of NPH insulin at bed time. - Check blood sugar 3x daily at meal times. - Take Plavix 75mg daily with Aspirin 81mg daily. - We added a new medication called Losartan. This drug is different than the Lisinopril that you took before, but there is a small chance that you will develop angioedema with it. Please call 911 if you have tongue swelling, throat closing, and shortness of breath. - Continue Atorvastatin 40mg daily and Carvedilol 12.5mg twice daily. - Take an antibiotic call Doxycycline 100mg twice daily through the 04/24/17. First dose will be this evening 04/19/17. - Continue your other medications. Diet Discharge Diet: Heart Healthy, Diabetic Activity Discharge Activity: Home Health Phyical Therapy Call your provider Call your provider for: Fever or Chills, Shortness of breath, Bleeding, Chest pain, Weakness (unilateral) Patient Instructions Patient Instructions - You were in the hospital for several heart issues. You had a blockage in your heart that will require stenting. However, you would like to defer the procedure and discuss with your doctors about it. Please follow up with your primary care doctor in 1 week. - You also had some heart block and low heart rate that required a pacemaker placement. This was done in the hospital. - Please continue the antibiotics until finish. - You will get a call from cardiology to set up an appointment for wound check at the pacemaker site next week. - You also has an appointment with Dr. Bowman (cardiology) in 1 month. You can discuss about the option of stenting at that visit. - Your diabetes is not well controlled. Please continue to take the Metformin and Glipizide as directed. - We also add insulin to your regimen. You will need to inject NPH 20 units once at bed time. Please check your blood sugar three times daily. I will send a blood sugar monitor kit before discharge today. The home health nurse will teach you about insulin use and blood sugar monitoring. - Home health with nursing care and bath aid for 4 weeks. Physical therapy for 1 week. You will need diabetic education by home health nurses. If not, your doctor should send a referral for diabetic education. - Go to the ER if you develop chest pain, shortness of breath, dizziness, headache, nausea, vomiting, or change in mental status. Follow-up plan - Follow up with pacemaker clinic in 1 week for wound check. - Follow up with your primary care doctor in 1 week. - Follow up with Dr. Srinivasan (cardiology) in 1 month. - Follow up with Dr. Loza (Endocrinology) in 1 month. Follow-up Provider: Abram Ahn MD Follow-up with PCP in: 1 week Provider: Campos Loza MD Follow-up in: 4 weeks Campos Loza MD 04/20/17 1012: Discharge Instructions Attending's Statement I interviewed and examined the patient on rounds today, and I agree with the above plan. Donato Ayala DO Apr 19, 2017 11:41 Campos Loza MD Apr 20, 2017 10:12
[2017-04-19] MEDS ORDERED: NPH,100I SUBQ (12:12)
[2017-04-19] MEDS ORDERED: DOXY100T2 PO (12:12)
[2017-04-19] MEDS ORDERED: test strips (12:12)
[2017-04-19] MEDS ORDERED: FURO40TA4 PO (12:12)
[2017-04-19] MEDS ORDERED: ATOR40TA69 PO (12:12)
[2017-04-19] MEDS ORDERED: BLOO-204 MC (12:12)
[2017-04-19] MEDS ORDERED: CLOP75TA28 PO (12:12)
[2017-04-19] MEDS ORDERED: LANC1EAC MC (12:12)
[2017-04-19] MEDS ORDERED: LOSA25TA2 PO (12:12)
[2017-04-19] MEDS ORDERED: CARV6.252 PO (12:12)
--- NOTE | 2017-04-19 12:14 | NUR ---
LAURA signed CHAU Waggoner
--- NOTE | 2017-04-19 13:20 | PROG NOTE ---
[address] [address] PROGRESS NOTE PATIENT: JOSE CHAPIN : 1930 MR#: [id number] ADMIT: 04/13/2017 JOB ID: [id number] DATE: 04/19/2017 CARDIOLOGY PROGRESS NOTE: CHIEF COMPLAINT: Chest pain and weakness. SUBJECTIVE: Overnight patient had no recurrence of chest pain and weakness. He says he is feeling fine. Review of nursing notes demonstrates the patient had a restful night. He denied any chest discomfort. OBJECTIVE: Vital signs: Temperature 36.6 up to 37.1, blood pressure 115/64 up to 135/74, pulse 72 up to 77 beats per minute. He is an about 50% V-paced. Well-nourished man, no apparent distress. Eyes: No scleral icterus. Heart: Normal S1, S2. No murmurs. Lungs: Clear to auscultation anteriorly. Abdomen: Soft. Positive bowel sounds. No hepatosplenomegaly. Extremities: Warm, well perfused. No clubbing, cyanosis, or edema. Skin: No rashes or lesions. The left infraclavicular fossa permanent pacemaker implant scar is clean, dry, and intact. CURRENT MEDICATIONS: Reviewed. He is on Lipitor 40 mg daily, aspirin 81 mg daily, Plavix 75 mg daily, carvedilol 12.5 mg twice a day, losartan 25 mg daily, Lantus, doxycycline, and. Metformin. PLAN: The plan for this patient is to be discharged home today. He already has a followup with Dr. Bowman to discuss subclavian stenosis in about a month. He has followup with Dr. Moore's title i instructional assistant, Aden Larry PA-C, in about a month for a device check and he will have a wound check the device nurse in about a week. Thank you very much for the opportunity to evaluate this patient.
--- NOTE | 2017-04-19 14:47 | NUR ---
Social Work Note: Discharge Data& Assessment: Per pt is medically ready to discharge home via POV with [facility] PT, RN and Bath Aid. Zia Martinez is a 86 year old male admitted on 04/13/2017 for DE and pneumonia. Per pt is medically improved and ready to discharge home with family support and [facility]. Per order, DURGA met with pt and pt granddaughter at bedside to provide Home Health list and discuss home health. Pt and pt granddaughter did not have a preference and agreed to refer to whoever could see them the soonest. DURGA spoke with Kaye from [facility] who confirmed they would be unable to see the pt until . DURGA spoke with Jacinda with [facility] who confirmed they would be able to see the pt as soon as tomorrow 04/20/2017. Referral provided to [facility], pt family notified. Pt family also provided with [facility] per pt family request as they are interested in obtaining a new PCP for pt. Pt family transporting pt home today. Pt and pt family denies any other needs. No other discharge needs identified. All updated and agreeable to plan. Plan: Per pt is medically ready to discharge home with family support via POV and [facility] LOPE[facility] PT, RN, and Bath aid to follow. Pt and pt family denies any other needs. No other discharge needs identified. All updated and agreeable to plan. CHAU Waggoner Addendum: 04/19/17 at 1455 by ZARINA GALLEGO Per request, DURGA faxed prescriptions for Jardiance and Januvia to pt preferred pharmacy [facility] in [place]. Per Zarina from [facility] the Jardiance would result in a co-pay of $438.00 and the Januvia would result in a co-pay of $404.00. notified. CHAU Waggoner
--- NOTE | 2017-04-19 15:49 | NUR ---
Discharge Note: Discussed discharge instructions and medications with patient and his granddaughter Jennie. Hardcopy Rx was given to patient along with educational information for each new medication and re: pacemaker. Patient is able to tolerate ambulating in room with SBA and use of FWW without report of CP, dizziness or SOB. Tele: Sinus 70's with 1st degree AVB and intermittent VPacing. VSS. Reviewed post heart cath and post pacemaker placement precautions. Patient verbalized understanding of follow up appointments and granddaughter stated she would assist with appointment schedules. IV's DC'd intact by RN. Pt exited unit via WC with all personal belongings and was transported home by granddaughter.
--- NOTE | 2017-04-19 16:39 | PCM.DC.MED ---
Discharge Summary Date of Service Apr 19, 2017 Dates of Hospitalization Date of Hospital Admission Apr 13, 2017 at 22:53 Date of Discharge: Apr 19, 2017 Providers: Admitting Physician: Kev Horowitz MD Primary Care Physician: Abram Ahn MD Attending Physician: Kev Horowitz MD Diagnosis at Time of Discharge Diagnosis at Time of Discharge Acute inferior STEMI. Present on admission. 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 Possible community acquired pneumonia, ruled out. Acute kidney injury. Present on admission. Resolved. Type 2 diabetes mellitus, uncontrolled, chronic. Hypertension, chronic, well controlled. Consultations Cardiology Procedures XRay, CTs & MRIs CT BRAIN WITHOUT CONTRAST IMPRESSION: 1. No acute intracranial process. 2. Moderate atrophy and chronic microvascular ischemic changes. Dictated by: Adelita Aquino M.D. on 04/13/2017 at 21:28 X-RAY CHEST ONE VIEW, PORTABLE IMPRESSION: Slight appearance of increased right basilar opacity possibly representing atelectasis versus developing pneumonia. Dictated by: Adelita Aquino M.D. on 04/13/2017 at 21:44 ECG 12 Lead accelerated junctional rhythm with a rate of 78 ST elevation in lead [address] elevation compared to prior Cardiac Echo Impression Interpretation Summary 1) Normal left ventricular size with severely reduced systolic function (EF 25-30%). 2) Moderate global hypokinesis with akinesis of the inferior and inferolateral wall. 3) Mildly dilated right ventricle with mildly reduced function. 4) Moderate mitral regurgitation present. 5) Pulmonary systolic pressure estimated at 37mmHg. 6) No prior Echo available for comparison. Findings consistent with ischemic heart disease. Invasive Procedures Cardiac catheterization with no stent and dual-chamber pacemaker implantation Brief History Patient is an 86 year old male with a history of CAD with five vessel CABG, hypertension and diabetes mellitus type 2 who presents with weakness and chest pain. Paramedics were called to the pt's house because of a fall that occurred three hours ago. The pt states that he had felt suddenly weak in his legs while walking and fell, but denies hitting his head or other trauma. He had been too weak to stand after the fall. Paramedics found him hypotensive with SBP in the 70's. An EKG in the field showed ST elevation. He reports aching substernal 7/ 10 chest pain which has now improved to a 2/10. This chest pain occurred over the last 2 days, and lasted for over an hour last night. He reports 3 days of generalized weakness and dizziness. He denies syncope, shortness of breath, palpitations, abdominal pain, N/V/D, orthopnea, PND, numbness/focal weakness, confusion, or diaphoresis. In the ED, BP was 89/68 but improved to 118/69 after receiving fluids. WBC was 12.9 with 74.5% neutrophils. Cr was 1.34. Glucose was 360. AST 90, ALT 24, CK was 625, Troponin was 1.58. EKG showed ST elevation in inferior leads. CXR showed increased right basilar opacity possibly representing pneumonia. CT head showed moderate atrophy and chronic microvascular ischemic changes, but not acute changes. Cardiology was consulted, and do not recommend an urgent cath at this time. They recommend aspirin and heparin without Plavix. Hospital Course Zia Martinez is an 86 year old man with a history of CAD with five vessel CABG, hypertension and diabetes mellitus type 2 who presents with weakness and chest pain. Admitted for acute STEMI. Acute inferior STEMI. Present on admission. - Hx of CAD with 5x CABG. - Cardiology consulted in the ED and did not recommend urgent catheterization. parking lot laborer was done on 04/15, which showed severe CAD in both [place] and graft vessels, notably total occlusion in the RCA and the saphenous vein graft to the posterolateral branch of the RCA. There is also a tight ulcerated 80% lesion in the mid left subclavian with significant plaque burden that is at risk for an embolic shower. - Telemetry showed 2nd degree heart block - Given his age and risk factors, Dr. Bowman recommended conservative management with medications. - Per patient's family request for a second opinion, Dr. Acosta was consulted and recommended medical management as well. Dr. Cerda discussed about the stenting for the severe subclavian stenosis. The patient did not want to proceed with urgent intervention and desired to be discharged home and follow up as an outpatient. - Continue Aspirin 81mg and Plavix 75mg daily. - Continue Heparin ggt for a total of 4-5 days post MA. - Continue atorvastatin 40mg daily. - Restart Carvedilol. Increase Losartan to 25 mg daily. Goal systolic per cardiology is less than 130 mmHg. - Home health with PT, RN, and bath aid. Second and third degree heart block, s/p pacemaker placement -Doxycycline through 04/24, physical therapy, arm sling. -Follow up with cardiology for device check and wound check at the pacemaker clinic. 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 -Appreciate Dr. Acosta's input. Patient had angioedema with Lisinopril. Tolerating ARBs well. -Strict I/O, low sodium diet. Possible community acquired pneumonia, ruled out. Acute kidney injury. Present on admission. Resolved. - Baseline Cr 0.9. Possibly due to dehydration. - Avoid nephrotoxic agents. Type 2 diabetes mellitus, uncontrolled, chronic. - Elevated blood glucose. A1c 8.0. - Increase Lantus 20 units qhs - Humalog medium dose correctional scale. - Restart home Metformin and Glipizide. - On discharge initiate Lantus and blood glucose check. SGLT2 cost is too much for the patient. Patient will need diabetic education either with home health or as outpatient. - Follow up with Dr. Loza in endocrine clinic within one month. Hypertension, chronic, well controlled. - As above - Bowel regimen as needed - Antiemetic as needed Patient is admitted under inpatient status with expected length of stay greater than 2 midnights due to severity of presenting symptoms, risk of adverse event, and complexity of treatment plan. Exam Vital Signs (Last) Date Time Temp Pulse Resp B/P Pulse Ox O2 Delivery O2 Flow Rate FiO2 04/19/17 08:34 77 04/19/17 08:02 36.6 16 135/74 95 Room Air 04/16/17 04:07 2.00 Exam General: Alert, Oriented X3, Cooperative, No acute distress Head: Normocephalic, atraumatic. External ears normal. Eyes: PERRLA, EOMI. Anicteric sclerae. Mouth: Mouth normal, Mucous membranes moist/pink Neck: Neck supple with full range of motion. Chest& Lungs: Clear to auscultation bilaterally with no wheezes or rhonchi. Mild rales at the bases. Left chest wall with pacemaker implanted with minimal signs of bleeding. No signs of infection. Cardiovascular: Regular rate/rhythm, Normal S1, Normal S2, II/ systolic murmur. Abdomen: Soft, Non-tender, Non-distended, No masses, Normoactive bowel tones. Extremities: No cyanosis/clubbing/edema bilaterally. Right groin access appears well healed with no bruises or bleeding. No signs of infection. Neurological: Grossly neurologically intact. Normal speech Test 04/13/17 21:00 04/13/17 22:10 04/14/17 04:30 04/14/17 16:40 Prothrombin Time 12.9sec (8.1-12.5) Prothromb Time International Ratio 1.20ratio Total Creatine Kinase 625U/L (21-232) Hemoglobin A1c 8.0% (4.8-5.6) Triglycerides Level 145mg/dL (0-149) Cholesterol Level 172mg/dL (100-199) LDL Cholesterol, Calculated 104.000mg/dL (0-99) VLDL Cholesterol 29.000mg/dL HDL Cholesterol 39mg/dL (>39) Cholesterol/HDL Ratio 4.41 (0.0-4.4) Urine Color Yellow (YELLOW) Urine Appearance Clear (CLEAR,HAZY) Urine pH 5.0 (5.0-8.0) Urine Specific [place] 1.025 (1.003-1.035) Urine Protein Negativemg/dL (NEG,TRACE) Urine Glucose (UA) 1000mg/dL (NEGATIVE) Urine Ketones Negativemg/dL (NEGATIVE) Urine Occult Blood Trace (NEGATIVE) Urine Nitrite Negative (NEGATIVE) Urine Bilirubin Negative (NEGATIVE) Urine Urobilinogen Normalmg/dL (NORMAL) Urine Leukocyte Esterase Negative (NEGATIVE) Urine RBC 0-2/hpf (0-2) Urine WBC 0-5/hpf (0-5) Urine Epithelial Cells Few/hpf (NONE-MOD) Urine Crystals None seen (NONE SEEN) Urine Bacteria Few/hpf (NONE-FEW) Urine Hyaline Casts Occasional/lpf (NONE) Urine Granular Casts None seen (NONE SEEN) Urine Waxy Casts None seen (NONE SEEN) Urine Red Blood Cell Casts None seen (NONE SEEN) Urine White Blood Cell Casts None seen (NONE SEEN) Urine Mucus Present (None Seen) Urine Trichomonas None seen (NONE SEEN) Urine Yeast None (NONE SEEN) Urinalysis Comment None Urine Culture Reflexed Not indicated Urine Legionella pneumophilia Ag Negative (Negative) Test 04/15/17 05:20 04/16/17 00:30 04/16/17 07:55 04/17/17 10:30 Total Bilirubin 0.5mg/dL (0.0-1.2) Aspartate Amino Transf (AST/SGOT) 51U/L (0-50) Alanine Aminotransferase (ALT/SGPT) 24U/L (0-44) Alkaline Phosphatase 99U/L (25-160) Total Protein 6.3g/dL (6.4-8.4) Albumin 3.0g/dL (3.4-5.0) Hold Purple Top Tube Received (Received) Hold Blue Top Tube Received (Received) Hold [place] Top Tube Received (Received) Hold [place] Top Tube Received (Received) Troponin T 1.88ug/L (0.0-0.011) Procalcitonin 0.41ng/mL (0.00-0.08) Activated Partial Thromboplast Time 31.3sec (22.8-33.0) Test 04/18/17 02:40 White Blood Count 7.7th/mm3 (3.8-10.1) Red Blood Count 4.49mil/mm3 (4.40-5.80) Hemoglobin 12.9g/dL (13.8-17.2) Hematocrit 37.5% (41.0-50.0) Mean Corpuscular Volume 83.5fL (81-100) Mean Corpuscular Hemoglobin 28.7pg (27.0-35.0) Mean Corpuscular Hemoglobin Concent 34.4% (32.0-37.0) Red Cell Distribution Width 13.4% (12.3-15.4) Platelet Count 249bil/L (150-400) Neutrophils (%) (Auto) 67.2% (40-74) Lymphocytes (%) (Auto) 19.0% (14-46) Monocytes (%) (Auto) 11.4% (4-12) Eosinophils (%) (Auto) 1.8% (0-5) Basophils (%) (Auto) 0.3% (0-3) Sodium Level 137mEq/L (134-144) Potassium Level 4.0mEq/L (3.5-5.2) Chloride Level 100mEq/L (97-108) Carbon Dioxide Level 20mmol/L (18-29) Blood Urea Nitrogen 21mg/dL (8-27) Creatinine 0.98mg/dL (0.76-1.27) Estimat Glomerular Filtration Rate 77mL/min (>59) Glucose Level 213mg/dL (60-99) Calcium Level 8.4mg/dL (8.5-10.1) Magnesium Level 1.6mg/dL (1.6-2.6) Discharge Medications Discharge Medications Aspirin Chew (Aspirin Chew) 81 Mg Chew 81 MG PO QAM (Reported) Atorvastatin Calcium (Atorvastatin Calcium) 40 Mg Tablet 40 MG PO HS Prescribed by: IRA VILLAVICENCIO DO Carvedilol (Carvedilol) 6.25 Mg Tablet 12.5 MG PO BIDWM Prescribed by: IRA VILLAVICENCIO DO Cholecalciferol (Vitamin D3) (Vitamin D3) 2,000 Unit Tablet 2,000 UNIT PO QAM ( Reported) Clopidogrel (Clopidogrel) 75 Mg Tablet 75 MG PO DAILY Prescribed by: IRA VILLAVICENCIO DO Doxycycline Hyclate (Doxycycline Hyclate) 100 Mg Tablet 100 MG PO BID Prescribed by: IRA VILLAVICENCIO DO Furosemide (Furosemide) 40 Mg Tablet 40 MG PO DAILY Prescribed by: IRA VILLAVICENCIO DO Glipizide (Glipizide) 10 Mg Tablet 10 MG PO BIDWM (Reported) Losartan Potassium (Cozaar) 25 Mg Tablet 25 MG PO DAILY Prescribed by: IRA VILLAVICENCIO DO Metformin (Glucophage) 1,000 Mg Tablet 1,000 MG PO BIDWM (Reported) NPH, Human Insulin Isophane (HUMulin-N U100 Insulin Kwikpen) 100 Unit/1 Ml Insuln.pen 20 UNIT SUBQ HS Prescribed by: IRA VILLAVICENCIO DO Timolol Maleate/Pf (Timoptic 0.5% Ocudose Drop) 1 Each Droperette 1 DROP BOTH_ EYES HS (Reported) Vitamin B Complex & Vit C No.4 (Super B Complex) 150 Mg Tablet 150 MG PO DAILY ( Reported) Durable Medical Equipment ([test strips]) UNIT (DME) use test strip to check blood glucose 3 times daily. Prescribed by: IRA VILLAVICENCIO DO Blood-Glucose Meter, Drum-Type (Accu-Chek) 1 Each Kit 1 EACH MC TID (DME) use with test strips to check blood glucose three times daily. Prescribed by: NGOCHANH H VILLAVICENCIO, DO Lancets (Lancets) 1 Each Each 1 EACH MC TID (DME) Prescribed by: IRA VILLAVICENCIO, DO Additional med instructions - Continue the Metformin and Glipizide at the current dose. - Inject 20 units of NPH insulin at bed time. - Check blood sugar 3x daily at meal times. - Take Plavix 75mg daily with Aspirin 81mg daily. - We added a new medication called Losartan. This drug is different than the Lisinopril that you took before, but there is a small chance that you will develop angioedema with it. Please call 911 if you have tongue swelling, throat closing, and shortness of breath. - Continue Atorvastatin 40mg daily and Carvedilol 12.5mg twice daily. - Take an antibiotic call Doxycycline 100mg twice daily through the 04/24/17. First dose will be this evening 04/19/17. - Continue your other medications. Followup Plan Disposition: Home with home health Follow-up plan - Follow up with pacemaker clinic in 1 week for wound check. - Follow up with your primary care doctor in 1 week. - Follow up with Dr. Srinivasan (cardiology) in 1 month. - Follow up with Dr. Loza (Endocrinology) in 1 month. Discharge Diet: Heart Healthy, Diabetic Discharge Activity: Home Health Phyical Therapy Patient Instructions - You were in the hospital for several heart issues. You had a blockage in your heart that will require stenting. However, you would like to defer the procedure and discuss with your doctors about it. Please follow up with your primary care doctor in 1 week. - You also had some heart block and low heart rate that required a pacemaker placement. This was done in the hospital. - Please continue the antibiotics until finish. - You will get a call from cardiology to set up an appointment for wound check at the pacemaker site next week. - You also has an appointment with Dr. Bowman (cardiology) in 1 month. You can discuss about the option of stenting at that visit. - Your diabetes is not well controlled. Please continue to take the Metformin and Glipizide as directed. - We also add insulin to your regimen. You will need to inject NPH 20 units once at bed time. Please check your blood sugar three times daily. I will send a blood sugar monitor kit before discharge today. The home health nurse will teach you about insulin use and blood sugar monitoring. - Home health with nursing care and bath aid for 4 weeks. Physical therapy for 1 week. You will need diabetic education by home health nurses. If not, your doctor should send a referral for diabetic education. - Go to the ER if you develop chest pain, shortness of breath, dizziness, headache, nausea, vomiting, or change in mental status. Follow-up Provider: Abram Ahn MD Follow-up with PCP in: 1 week Provider: Campos Loza MD Follow-up in: 4 weeks Time spent 40 minutes Attending Statement We queried insurance coverage for Jardiance, Januvia and Humulin N Pen, and found them all to be prohibitively expensive. The patient will require bedtime Novolin N drawn from vial by syringe. He will need instruction by the Home RN service, with consideration for filling weekly syringe allotment by RN for patient to self-administer. copies to: Abram Ahn MD, Ngochanh H DO Apr 19, 2017 16:38 Campos Loza MD Apr 20, 2017 10:18
== END 2017-04-19 15:50 | disposition home health service (06) | DRG 243 ==
LOC: SED 21:01 → PCC 22:53
PROVIDERS: ADMIT Hospitalist; ATTEND Internal Medicine
PROC: 4A023N7 Measurement of Cardiac Sampling and Pressure, Left Heart, Percutaneous Approach (ICD-10-PCS; principal; 2017-04-15)
PROC: B2131ZZ Fluoroscopy of Multiple Coronary Artery Bypass Grafts using Low Osmolar Contrast (ICD-10-PCS; 2017-04-15)
PROC: B2111ZZ Fluoroscopy of Multiple Coronary Arteries using Low Osmolar Contrast (ICD-10-PCS; 2017-04-15)
PROC: 0JH606Z Insertion of Pacemaker, Dual Chamber into Chest Subcutaneous Tissue and Fascia, Open Approach (ICD-10-PCS; 2017-04-17)
PROC: 02H63JZ Insertion of Pacemaker Lead into Right Atrium, Percutaneous Approach (ICD-10-PCS; 2017-04-17)
PROC: 02HK3JZ Insertion of Pacemaker Lead into Right Ventricle, Percutaneous Approach (ICD-10-PCS; 2017-04-17)
DX: I21.11 ST elevation (STEMI) myocardial infarction involving right coronary artery (principal); N17.9 Acute kidney failure, unspecified; I44.2 Atrioventricular block, complete; I50.22 Chronic systolic (congestive) heart failure; I25.810 Atherosclerosis of coronary artery bypass graft(s) without angina pectoris; E86.0 Dehydration; I10 Essential (primary) hypertension; I44.1 Atrioventricular block, second degree; I25.5 Ischemic cardiomyopathy; I49.5 Sick sinus syndrome; Z95.1 Presence of aortocoronary bypass graft; E11.9 Type 2 diabetes mellitus without complications; Z87.891 Personal history of nicotine dependence; E78.5 Hyperlipidemia, unspecified; Z79.84 Long term (current) use of oral hypoglycemic drugs

== ENCOUNTER 2017-05-13 13:47 | Emergency (ER) | payer MEDICARE, OTHER ==
[~2017-05-13] VITALS: Wt 79.5 kg
[~2017-05-13 13:47] MED LIST changes: -ASP81TEC PO; +ASPI81TA3 PO; +ATOR40TA69 PO; +BLOO-204 MC; +CARV6.252 PO; -CHOL10002 PO; +CHOL200025 PO; +CLOP75TA28 PO; -COR625 PO; +DOXY100T2 PO; +FURO40TA4 PO; +GLIP10TA10 PO; -GLIP10TA2 PO; +LANC1EAC MC; +LOSA25TA2 PO; +NPH,100I SUBQ; -SMV40T PO; +TIMO1DRO4 BOTH_EYES; +VITA150T PO; +test strips
[2017-05-13 13:58] VITALS: BP 96/77; PULSE 79; RESP 24; O2SAT 98
--- NOTE | 2017-05-13 14:07 | ED.REPORT ---
HPI-General Illness Date of Service May 13, 2017 ED Provider: Logan Qiu DO Nursing Notes Stated Complaint: LOW BP Chief Complaint: General Complaint Allergies: Coded Allergies: BROCK Inhibitors (Verified Allergy, Unknown, Anaphylaxis, 04/13/17) Scheduled Aspirin Chew (Aspirin Chew) 81 Mg Chew 81 MG PO QAM Atorvastatin Calcium (Atorvastatin Calcium) 40 Mg Tablet 40 MG PO HS Carvedilol (Carvedilol) 6.25 Mg Tablet 12.5 MG PO BIDWM Cholecalciferol (Vitamin D3) (Vitamin D3) 2,000 Unit Tablet 2,000 UNIT PO QAM Clopidogrel (Clopidogrel) 75 Mg Tablet 75 MG PO DAILY Doxycycline Hyclate (Doxycycline Hyclate) 100 Mg Tablet 100 MG PO BID Furosemide (Furosemide) 40 Mg Tablet 40 MG PO DAILY Glipizide (Glipizide) 10 Mg Tablet 10 MG PO BIDWM Losartan Potassium (Cozaar) 25 Mg Tablet 25 MG PO DAILY Metformin (Glucophage) 1,000 Mg Tablet 1,000 MG PO BIDWM NPH, Human Insulin Isophane (HUMulin-N U100 Insulin Kwikpen) 100 Unit/1 Ml Insuln.pen 20 UNIT SUBQ HS Timolol Maleate/Pf (Timoptic 0.5% Ocudose Drop) 1 Each Droperette 1 DROP BOTH_ EYES HS Vitamin B Complex & Vit C No.4 (Super B Complex) 150 Mg Tablet 150 MG PO DAILY General Time Seen by MD: 14:06 Past Medical History Past Medical History hypertension back injury diabetes Past Surgical History foot surgery 5 way CABG Reports: Cataract surgery, Cholecystectomy Smoking History Former Smoker Social History Other Social History: Good social support Ambulatory Status Independent Physical Exam Vital Signs Vital Signs Date Time Temp Pulse Resp B/P Pulse Ox O2 Delivery O2 Flow Rate FiO2 05/13/17 13:58 79 24 96/77 98 Room Air Interpretation & Diagnostics Lab Results Interpretation Result Diagram: 05/13/17 1400 Test 05/13/17 14:00 White Blood Count 6.2th/mm3 (3.8-10.1) Red Blood Count 5.03mil/mm3 (4.40-5.80) Hemoglobin 14.1g/dL (13.8-17.2) Hematocrit 41.6% (41.0-50.0) Mean Corpuscular Volume 82.7fL (81-100) Mean Corpuscular Hemoglobin 28.0pg (27.0-35.0) Mean Corpuscular Hemoglobin Concent 33.9% (32.0-37.0) Red Cell Distribution Width 13.4% (12.3-15.4) Platelet Count 201bil/L (150-400) Neutrophils (%) (Auto) 54.6% (40-74) Lymphocytes (%) (Auto) 32.6% (14-46) Monocytes (%) (Auto) 9.7% (4-12) Eosinophils (%) (Auto) 2.6% (0-5) Basophils (%) (Auto) 0.3% (0-3) Discharge & Departure Referrals: Abram Ahn MD (PCP) Logan Qiu DO May 13, 2017 14:07
[2017-05-13 14:15] LABS: BASOPHILS % (AUTO) 0.3 % (0-3); EOSINOPHILS % (AUTO) 2.6 % (0-5); MONOCYTES % (AUTO) 9.7 % (4-12); Mean Corpuscular Volume 82.7 fL (81-100); NEUTROPHILS % (AUTO) 54.6 % (40-74); Platelet Count 201 bil/L (150-400)
--- NOTE | 2017-05-13 14:31 | DRSVH ---
PROCEDURE: X-RAY CHEST ONE VIEW, PORTABLE ([id number]) INDICATIONS: CHEST PAIN TECHNIQUE: One view of the chest was acquired. COMPARISON: [facility], CR, XR CHEST 2VW, 04/18/2017, 8:19. FINDINGS: Surgical changes and devices: A cardiac pacer/fibular apparatus is seen overlying the left chest tube postoperative changes related to prior median sternotomy are also evident. Lungs and pleura: No pleural effusions or pneumothorax. Lungs are clear. Mediastinum: Mediastinal contours appear normal. Heart size is normal. There is aortic atheroscler osis. Bones and chest wall: No suspicious bony lesions. Degenerative changes of the spine are not adequat jason evaluated. Overlying soft tissues appear unremarkable. IMPRESSION: Stable chest. No acute cardiopulmonary process is evident. Dictated by: Souleymane King M.D. on 05/13/2017 at 13:29 Approved by: Souleymane King M.D. on 05/13/2017 at 13:30
[2017-05-13 14:36] VITALS: BP 100/62; PULSE 95; RESP 20; O2SAT 96
[2017-05-13 14:55] LABS: TROPONIN T 0.296 ug/L (0.0-0.011)
--- NOTE | 2017-05-13 15:11 | ED.REPORT ---
HPI-General Illness Date of Service May 13, 2017 ED Provider: Ayden Childs MD History of Present Illness: Greeted by Dr. Valentino at 1411 Sent in by home nurse for low BP Patient is an 86 year old male with a history of diabetes, hypertension, CABG x5 , pacemaker placement 2.5 weeks ago and a SC a month ago who presents to the ED due to hypotension. The patient reports that he is asymptomatic and came to the ED after his home care nurse recommended it. Patient states that he did have an episode of dizziness earlier today. He denies shortness of breath, chest pain or lightheadedness. Per the patient's son, the patient appeared to be in good health yesterday. Nursing Notes Stated Complaint: LOW BP Chief Complaint: General Complaint Nursing Notes Reviewed: Yes ([employer] not reconciled) Allergies: Coded Allergies: BROCK Inhibitors (Verified Allergy, Unknown, Anaphylaxis, 04/13/17) Scheduled Aspirin Chew (Aspirin Chew) 81 Mg Chew 81 MG PO QAM Atorvastatin Calcium (Atorvastatin Calcium) 40 Mg Tablet 40 MG PO HS Carvedilol (Carvedilol) 6.25 Mg Tablet 12.5 MG PO BIDWM Cholecalciferol (Vitamin D3) (Vitamin D3) 2,000 Unit Tablet 2,000 UNIT PO QAM Clopidogrel (Clopidogrel) 75 Mg Tablet 75 MG PO DAILY Doxycycline Hyclate (Doxycycline Hyclate) 100 Mg Tablet 100 MG PO BID Furosemide (Furosemide) 40 Mg Tablet 40 MG PO DAILY Glipizide (Glipizide) 10 Mg Tablet 10 MG PO BIDWM Losartan Potassium (Cozaar) 25 Mg Tablet 25 MG PO DAILY Magnesium Chloride (Slow-Mag) 64 Mg Tablet 64 MG PO DAILY Metformin (Glucophage) 1,000 Mg Tablet 1,000 MG PO BIDWM NPH, Human Insulin Isophane (HUMulin-N U100 Insulin Kwikpen) 100 Unit/1 Ml Insuln.pen 20 UNIT SUBQ HS Timolol Maleate/Pf (Timoptic 0.5% Ocudose Drop) 1 Each Droperette 1 DROP BOTH_ EYES HS Vitamin B Complex & Vit C No.4 (Super B Complex) 150 Mg Tablet 150 MG PO DAILY General Time Seen by MD: 15:10 Chief Complaint Other (hypotension) Hx Obtained From: Patient, Son Arrived By: Walk-in Sudden in Onset?: Yes Onset Occurred: 1 - 4 hours ago Severity: Current: No pain currently Recent Healthcare: Recent doctor visit, Recent hospitalization Past Medical History Past Medical History Patient admitted April 13 through 04/19/[address] segment elevation SC , on medical management, complicated by third degree heart block requiring pacemaker placement Ischemic cardiomyopathy EF 25-30% Subclavian stenosis Acute kidney injury, resolved hypertension back injury diabetes, Type 2 Past Surgical History foot surgery 5 way CABG Cardiac catheterization April 15 revealed severe coronary disease in both [place] and graft vessels, notably total occlusion of the RCA and saphenous vein graft to posterior lateral branch of the RCA. There is also tight ulcerated 80% lesion in the mid left subclavian with significant fibroid and that is at risk for an embolic shower Reports: Cataract surgery, Cholecystectomy Reports: Pacemaker insertion Smoking History Former Smoker Social History Other Social History: Good social support Ambulatory Status Independent Review of Systems Full Review of Systems Constitutional: Denies: Chills, Fever Respiratory: Denies: Non-productive cough, Shortness of breath Cardiovascular: Denies: Chest pain GI: Denies: Nausea Skin: Denies Itching, Denies Rash Neurologic: Reports: Dizziness, Denies: Lightheaded, Numbness, Weakness Complete sys rev & neg: except as marked. Physical Exam Vital Signs Vital Signs Date Time Temp Pulse Resp B/P Pulse Ox O2 Delivery O2 Flow Rate FiO2 05/13/17 16:26 76 16 111/74 97 Room Air 05/13/17 14:36 95 20 100/62 96 Room Air 05/13/17 13:58 79 24 96/77 98 Room Air Initial VS: Reviewed, Vital signs abnormal (low BP) General/Constitutional: Awake, Alert, No acute distress Head / Eyes: Atraumatic, Normocephalic, PERRL, EOMI Neck: Atraumatic, Supple Respiratory / Chest: Atraumatic, Breath sounds NL, Breath sounds = bilat, No respiratory distress Cardiovascular: Heart rate NL, Regular rhythm, Heart sounds NL Skin: Atraumatic, Color NL, No rash, Warm, Dry Neurologic: Oriented X3, Speech NL, No motor deficits, No sensory deficits Psychiatric: Affect NL, Mood NL Interpretation & Diagnostics Lab Results Interpretation Result Diagram: 05/13/17 1400 05/13/17 1400 Test 05/13/17 14:00 05/13/17 16:00 White Blood Count 6.2th/mm3 (3.8-10.1) Red Blood Count 5.03mil/mm3 (4.40-5.80) Hemoglobin 14.1g/dL (13.8-17.2) Hematocrit 41.6% (41.0-50.0) Mean Corpuscular Volume 82.7fL (81-100) Mean Corpuscular Hemoglobin 28.0pg (27.0-35.0) Mean Corpuscular Hemoglobin Concent 33.9% (32.0-37.0) Red Cell Distribution Width 13.4% (12.3-15.4) Platelet Count 201bil/L (150-400) Neutrophils (%) (Auto) 54.6% (40-74) Lymphocytes (%) (Auto) 32.6% (14-46) Monocytes (%) (Auto) 9.7% (4-12) Eosinophils (%) (Auto) 2.6% (0-5) Basophils (%) (Auto) 0.3% (0-3) Sodium Level 138mEq/L (134-144) Potassium Level 4.0mEq/L (3.5-5.2) Chloride Level 97mEq/L (97-108) Carbon Dioxide Level 20mmol/L (18-29) Blood Urea Nitrogen 27mg/dL (8-27) Creatinine 1.36mg/dL (0.76-1.27) Estimat Glomerular Filtration Rate 53mL/min (>59) Glucose Level 154mg/dL (60-99) Calcium Level 9.2mg/dL (8.5-10.1) Magnesium Level 1.2mg/dL (1.6-2.6) Total Bilirubin 0.5mg/dL (0.0-1.2) Aspartate Amino Transf (AST/SGOT) 16U/L (0-50) Alanine Aminotransferase (ALT/SGPT) 12U/L (0-44) Alkaline Phosphatase 123U/L (25-160) Pro-B-Type Natriuretic Peptide 2519pg/mL (0-486) Total Protein 7.1g/dL (6.4-8.4) Albumin 3.5g/dL (3.4-5.0) Troponin T 0.300ug/L (0.0-0.011) Lab Results Interpretation: CBC normal Troponin elevated, but trending down from recent SC, repeat troponin unchanged CMP mild renal insufficiency Magnesium level low ECG Interpretation ECG Interpretation: wide complex rhythm LBBB vs left ventricular hypertrophy ST segment depressions that were present in previous EKG in leads V4, V5, V6 have resolved T wave inversions persist 1st degree heart block overall, improved EKG from prior Time: 14:15 Interpreted by: ED physician Normal ECG Interpretation: Normal rate (77), Normal sinus rhythm X-Ray Chest Interpretation Chest Xray Interpretation: IMPRESSION: Stable chest. No acute cardiopulmonary process is evident. Dictated by: Souleymane King M.D. on 05/13/2017 at 13:29 Approved by: Souleymane King M.D. on 05/13/2017 at 13:30 View: Portable, 1 view Interpretation / Wet Read by: Interpret - Radiologist Re-Eval/Medical Decision Med Decision/Clinical Course This is a pleasant 86-year-old male who presents to ST segment elevation SC the end of last month, and is on medical management. He was discharged on increasing carvedilol, losartan, and furosemide as well as Plavix. He reports he has had no chest pain or shortness of breath, but was sent in with a visiting home nurse noted her blood pressure in the 80s. He reports no symptoms with this. His blood pressures in the mid 90s and low 100s here in the department, and he is asymptomatic. Family reports he is doing well as well. He has no JVD, no Rales, and trace edema which she states is chronic. His EKG is improved compared to previous. Lab work was notable for an elevated troponin, although technically down from the extremely high elevation before. A repeat troponin reveals no real change. The patient's blood pressure improved without intervention. At this point is a strong suspicion that the new medications may be contributing to the low blood pressure, so discussed the case with cardiology-and the recommendation is to decrease his carvedilol by half from 6.25 mg twice a day, to 3.125 mg twice a day-and have him keep the appointment for follow-up next week with Dr. Bowman. The patient has no clinical signs of an acute cord syndrome or event. He is to continue his other medicines. Continue current management. Return for new or worsening symptoms. The patient and the family are comfortable with this. The patient's magnesium was also low, and he received a 2 g dose in the department, is being discharged on Slow-Mag as well. Source of Hx: Old records Time of Eval: 17:12 Re-Evaluation/Progress Note: Discussed all results and plan for discharge. Patient understands and agrees to the plan. All questions were addressed. Consultation : Referral / Consult Name: Radha Hill MD Consulted With: Cardiology Call Returned at: 17:01 Latin American Studies Director: Agrees with eval, Agrees with plan Note: Consult with Dr. Hill, who recommends cutting the dose of Carvedilo. Differential Diagnosis: Negative: Abdominal pain, Acute coronary syndrome, Allergies, Diabetes mellitus, Fracture, G-tube repair/replacement, Malingering, Pneumonia Counseled Regarding: Diagnosis, Lab results, Need for follow-up, When/why to return to ED Discharge & Departure Primary Impression: Adverse effects of medication Encounter type: initial encounter Qualified Code: T88.7XXA - Unspecified adverse effect of drug or medicament, initial encounter Additional Impressions: Hypotension Hypotension type: unspecified hypotension type Qualified Code: I95.9 - Hypotension, unspecified Low magnesium level Disposition: Home Discharge Condition All VS Reviewed: Yes Condition: Stable Additional Instructions: 1. Your blood pressure was on the low side today. 2. This is likely from the recent increase in your medications. 3. Cut the carvedilol in 10/20 to 3.125mg twice daily(instead of 6.25mg twice a day). 4. Continue your other medications. 5. Your magnesium was also on the low side. Take slow-mag replacement 64mg daily. 6. Follow up for a recheck next week with your primary care doctor. 7. Return if new or worsening symptoms. Referrals: Abram Ahn MD (PCP) Scribe Attestation Portions of this note were transcribed by Magali Rubi. I, Dr. Childs personally performed the history, physical exam and medical decision-making; I reviewed and confirmed the accuracy of the information in the transcribed note. Signed by: Magali Santos, 05/13/17 copies to: Abram Ahn MD, Matthew F MD May 13, 2017 15:11 Na Rubi May 13, 2017 15:24
[2017-05-13 15:22] LABS: Magnesium 1.2 mg/dL (1.6-2.6)
[2017-05-13] MEDS ORDERED: Magnesium Sulf 2 Gm/50mL Water 2 GM in IV Premix 1 EACH IV ONE (15:30)
[2017-05-13] MEDS ORDERED: SLO64 PO (15:34)
[2017-05-13 16:26] VITALS: BP 111/74; PULSE 76; RESP 16; O2SAT 97
[2017-05-13 17:42] VITALS: BP 103/70; PULSE 72; RESP 16; O2SAT 97
== END 2017-05-13 17:45 | disposition home or self-care (01) ==
LOC: SED 13:47
DX: I15.9 Secondary hypertension, unspecified (principal); T50.1X5A Adverse effect of loop [high-ceiling] diuretics, initial encounter; Y93.89 Activity, other specified; Y92.89 Other specified places as the place of occurrence of the external cause; Y99.8 Other external cause status; E83.42 Hypomagnesemia; I11.9 Hypertensive heart disease without heart failure; I25.2 Old myocardial infarction; E11.59 Type 2 diabetes mellitus with other circulatory complications; Z95.0 Presence of cardiac pacemaker; Z95.1 Presence of aortocoronary bypass graft; Z79.82 Long term (current) use of aspirin; Z79.84 Long term (current) use of oral hypoglycemic drugs; Z87.891 Personal history of nicotine dependence; Z88.8 Allergy status to other drugs, medicaments and biological substances

== ENCOUNTER 2017-05-27 03:06 | Day surgery (SDC) | payer MEDICARE, OTHER ==
[~2017-05-27] VITALS: Ht 175.3 cm; Wt 76.5 kg
[2017-05-27] VITALS (13 sets, daily range): BP systolic 107–140; BP diastolic 59–88; PULSE 65–75; RESP 12–22; O2SAT 92–97
[~2017-05-27 03:06] MED LIST changes: -CARV6.252 PO; -DOXY100T2 PO; +SLO64 PO
[2017-05-27] MEDS ORDERED: fentaNYL-PF 50 mCg/mL 2 mL Inj ONE (03:07)
[2017-05-27] MEDS ORDERED: Phenylephrine/NS 100 mCg/mL 10 mL Syringe IVPUSH ONE (03:07)
[2017-05-27] MEDS ORDERED: Propofol 10,000 mCg/mL 20 mL Inj ONE (03:07)
[2017-05-27] MEDS ORDERED: Lactated Ringer's 1,000 ML IV ONE (06:00)
[2017-05-27] MEDS ORDERED: Vancomycin Inj 1,000 MG in IV Premix 1 EACH IV ONE (13:00)
[2017-05-27 13:27] LABS: BASOPHILS % (AUTO) 0.3 % (0-3); EOSINOPHILS % (AUTO) 1.3 % (0-5); MONOCYTES % (AUTO) 8.2 % (4-12); Mean Corpuscular Hemoglobin 27.9 pg (27.0-35.0); Mean Corpuscular Volume 82.9 fL (81-100); NEUTROPHILS % (AUTO) 64.1 % (40-74); Platelet Count 280 bil/L (150-400)
[2017-05-27 13:45] LABS: INR 1.1 ratio
[2017-05-27] MEDS ORDERED: Vancomycin 1,000 mg Inj ONE (14:37)
[2017-05-27] MEDS ORDERED: Heparin 10,000 Unit/1,000 mL NS Premix IV ONE (14:37)
--- NOTE | 2017-05-27 15:05 | PCM.HPANE ---
Patient Data Date of Service: May 27, 2017 Surgeon Admitting Provider: Attending Provider:Júnior Moore MD Primary Care Physician:Abram Ahn MD Other Provider:Jenny Kohli Anesthesia Reason for Visit Ventricular Tachycardia Ht/WT & BMI Height (Feet): 6 Height (Inches): 0.00 Weight (Kilograms): 76.100 Body Mass Index 22.72 Allergies Coded Allergies: BROCK Inhibitors (Verified Allergy, Unknown, Anaphylaxis, 04/13/17) Past Anesthesia History Anesthesia History: Denies:: Anesthesia Reactions, Fam Anesthesia Reaction Diabetes History Hx Diabetes?: Yes (type II) Current Bedside Blood Glucose: 167 MRSA MRSA: No Medications Hypertension Medication: Yes Home Meds Incl Beta [place]: No Active Scripts Magnesium Chloride (Slow-Mag)64 Mg Tboqmx11 Mg PO DAILY #60 TABLET Prov:Ayden Childs MD 05/13/17 [test strips] No Conflict Check #90 Unit use test strip to check blood glucose 3 times daily. Prov:Donato Ayala DO 04/19/17 Lancets 1 Each Each #90 Each Mc Tid Prov:Donato Ayala DO 04/19/17 Blood-Glucose Meter, Drum-Type (Accu-Chek)1 Each Kit #1 Each Mc Tid use with test strips to check blood glucose three times daily. Prov:Donato Ayala DO 04/19/17 NPH, Human Insulin Isophane (HUMulin-N U100 Insulin Kwikpen)100 Unit/1 Ml Insuln.pen20 Unit SUBQ HS #10 PENINJ Ref 0 Prov:Donato Ayala DO 04/19/17 Furosemide 40 Mg Lfvcwh92 Mg PO DAILY #30 TABLET Prov:Donato Aayla DO 04/19/17 Losartan Potassium (Cozaar)25 Mg Uwebsy29 Mg PO DAILY #30 TABLET Prov:Donato Ayala DO 04/19/17 Atorvastatin Calcium 40 Mg Cgyooa94 Mg PO HS #30 TABLET Prov:Donato Ayala DO 04/19/17 Clopidogrel 75 Mg Tqjbol55 Mg PO DAILY #30 TABLET Prov:Donato Ayala DO 04/19/17 Reported Medications Cholecalciferol (Vitamin D3) (Vitamin D3)2,000 Unit Tablet2,000 Unit PO QAM 6/26/17 Vitamin B Complex & Vit C No.4 (Super B Complex)150 Mg Qdzfbi440 Mg PO DAILY 04/13/17 Metformin (Glucophage)1,000 Mg Tablet1,000 Mg PO BIDWM Ref 0 04/13/17 Glipizide 10 Mg Dujkqr85 Mg PO BIDWM 30 Days 04/13/17 Aspirin Chew 81 Mg Chew81 Mg PO QAM Ref 0 04/13/17 Timolol Maleate/Pf (Timoptic 0.5% Ocudose Drop)1 Each Droperette1 Drop BOTH_ EYES HS 04/13/17 Discontinued Scripts Carvedilol 6.25 Mg Aeafhp48.5 Mg PO BIDWM #120 TABLET Prov:Donato Ayala DO 04/19/17 Doxycycline Hyclate 100 Mg Kvyifh030 Mg PO BID #11 TABLET Prov:Donato Ayala DO 04/19/17 History History of ENT Problems?: Yes HEENT History: Positive for:: Cataracts Denies:: Dysphagia Glaucoma Sinus Problem Denture Type: None Teeth Condition: Missing Teeth (missing several teeth; ones present cracked in front) Hx of Heart Problems?: Yes Cardiovascular History: Positive for:: Cardiac Surgery (2003 CABG X5) Chest Pain Congestive Heart Failure Hypertension Denies:: Edema Heart Murmur Irregular Heartbeat Pacemaker Thrombophlebitis Hx of Respiratory Problem?: Yes Respiratory History: Positive for:: Chest Surgery (CABG 5 vessel) Pneumonia Denies:: Asthma COPD Dyspnea Emphysema Hemoptysis Tuberculosis Hx Neurologic Problems?: No Neurological History: Denies:: Alzheimer's Disease CVA Dementia Dizziness Headaches Parkinson's Disease Seizures Hx of GI Problems?: No Gastrointestinal History: Denies:: Gastroesphageal Reflux Hx of Problems?: No Genitourinary History: Denies:: HX of Hemodialysis Kidney Stones Urinary Tract Infection HX of Peritoneal Dialysis: No Male Hx: Denies:: Prostate Problems Scrotal Mass Testicular Surgery Hx Musculoskeletal Problems?: No Musculoskeletal History: Positive for:: Back Injury Musculoskeletal Trauma (reported 2002) Denies:: Joint Replacement Hx of Psycho/Social Problems?: No Hx Surgeries?: Yes (cabg, gallbladder; pacer) Hx Any Other Health Problems?: Yes Other History: Positive for:: Endocrine Disease Hospitalization (surgeries) Denies:: Cancer Thyroid Disease History Blood Transfusions: Positive for:: Accept Blood Products? Denies:: Blood Transfuse Reaction Blood Transfusions Hx Diabetes: Yes (type II)Bedside Blood Glucose: 167 Hx Alcohol Use: No (quit 40 years ago)Hx Substance Use: No Smoking Status: Former Smoker Have You Smoked inLast 12 mo: No Stop/Bang Treated for Sleep Apnea?: No Do You Have a CPAP Machine?: No S-Snoring: Do You Snore Loudly: Yes T-Tired: feel tired, fatigued: Yes O-Obsered: Observed not breath: No P-Blood Pressure: treated: Yes B- Body Mass Index > 35 kg/m2: No A- Age over 50: Yes N- Neck Large Circumference: No G- Gender Male: Yes OSMEL Risk Assessment: High Risk, =/>3 Yes OSMEL Category 4 OutPt Procedure: Yes Risk Assessment Category Category 1A: Patient has history of documented sleep apnea, and HAS NOT received any narcotic, sedative or anesthesia administration during this stay. Category 1B: Patient has history of documented sleep apnea, and HAS received any narcotic , sedative or anesthesia administration during this stay Category 2: Patient has SUSPECTED Obstructive Sleep Apnea, and HAS received any narcotic , sedative or anesthesia administration during this stay. Category 3: Patient has SUSPECTED Obstructive Sleep Apnea and HAS NOT received narcotic, sedative or anesthesia administration during this stay. Category 4: Outpatient in Procedural Areas with known sleep apnea or who screen positive for High Risk via the STOP/BANG questionnaire. Exam Exam Vital Signs Vital Signs Date Time Temp Pulse Resp B/P Pulse Ox O2 Delivery O2 Flow Rate FiO2 05/27/17 13:16 36.6 75 22 110/59 95 Room Air General Appearance: Alert, Oriented X3, Cooperative, No Acute Distress HEENT/AIRWAY: MP 2 Lungs: Clear to Auscultation, Normal Air Movement Heart: Regular Rate/Rhythm, No Murmurs/Rubs/Gallops Meds/Labs/Diagnostics Bedside Blood Glucose: 167 Labs Test 05/27/17 13:15 White Blood Count 7.7th/mm3 (3.8-10.1) Red Blood Count 5.26mil/mm3 (4.40-5.80) Hemoglobin 14.7g/dL (13.8-17.2) Hematocrit 43.6% (41.0-50.0) Mean Corpuscular Volume 82.9fL (81-100) Mean Corpuscular Hemoglobin 27.9pg (27.0-35.0) Mean Corpuscular Hemoglobin Concent 33.7% (32.0-37.0) Red Cell Distribution Width 13.5% (12.3-15.4) Platelet Count 280bil/L (150-400) Neutrophils (%) (Auto) 64.1% (40-74) Lymphocytes (%) (Auto) 25.8% (14-46) Monocytes (%) (Auto) 8.2% (4-12) Eosinophils (%) (Auto) 1.3% (0-5) Basophils (%) (Auto) 0.3% (0-3) Prothrombin Time 11.8sec (8.1-12.5) Prothromb Time International Ratio 1.10ratio Sodium Level 141mEq/L (134-144) Potassium Level 4.0mEq/L (3.5-5.2) Chloride Level 98mEq/L (97-108) Carbon Dioxide Level 24mmol/L (18-29) Blood Urea Nitrogen 25mg/dL (8-27) Creatinine 1.17mg/dL (0.76-1.27) Estimat Glomerular Filtration Rate 63mL/min (>59) Glucose Level 177mg/dL (60-99) Calcium Level 9.6mg/dL (8.5-10.1) Plan Impression Patient chart reviewed, patient interviewed and anesthestic plan with risks, benefits, and alternatives discussed, and informed consent obtained. NPO per Anesth. Guidelines: Yes ASA Physical Status: ASA4 Life Threatening (heart block, recent [place], severe CAD) Anesthetic Plan: MAC Bene/Risks/Altern/Consents: Yes HP Complete Prior to Induction: Yes Douglas Gaytan MD May 27, 2017 15:05
[2017-05-27] MEDS ORDERED: 0.9% Sodium Chloride 250 ML ONE (15:40)
[2017-05-27] MEDS ORDERED: Bupivacaine-MPF 0.5% 30 mL Inj ONE (15:49)
--- NOTE | 2017-05-27 16:17 | NUR ---
JOHN Admit to [facility] bed 8 at 1300 accompanied by and son. Patient denies pain. He is extremely deaf which makes communication difficult. He refuses to use his hearing aid. Son helpful in providing history. HL x 2 placed, ECG 12 complete, consent confirmed. History and medications reviewed. Pre-procedure teaching done and questions answered.
[2017-05-27] MEDS: 0.9% Sodium Chloride 1,000 ML IV SCH ×2 (16:53→21:41)
[2017-05-27] MEDS ORDERED: Ondansetron 2 mg/mL 2 mL Inj IVPUSH PRN (16:55)
[2017-05-27] MEDS ORDERED: HYDROcodone-APAP 5-325 mg Tablet PO PRN (16:55)
--- NOTE | 2017-05-27 18:21 | DRSVH ---
PROCEDURE: X-RAY CHEST ONE VIEW, PORTABLE ([id number]) INDICATIONS: For new leads placed TECHNIQUE: One view of the chest was acquired. COMPARISON: [facility], CR, XR CHEST 1VW (PORTABLE), 05/13/2017, 13:56. FINDINGS: Surgical changes and devices: Left chest wall AICD is noted. Cystectomy clips. Lungs and pleura: No pleural effusions or pneumothorax. Lungs are clear. Mediastinum: Mediastinal contours appear normal. Heart size is normal. Bones and chest wall: No suspicious bony lesions. Overlying soft tissues appear unremarkable. IMPRESSION: No acute cardiopulmonary disease process. Dictated by: Pushpa Hightower MD, PhD on 05/27/2017 at 18:19 Approved by: Pushpa Hightower MD, PhD on 05/27/2017 at 18:20
--- NOTE | 2017-05-27 18:40 | PCM.ANEP1 ---
Post Anesthesia PACU Phase 1 Assessment Date of Service: May 27, 2017 Vital Signs Vital Signs Date Time Temp Pulse Resp B/P Pulse Ox O2 Delivery O2 Flow Rate FiO2 05/27/17 18:15 65 16 133/67 97 Room Air 05/27/17 18:14 65 16 133/67 97 Room Air 05/27/17 18:00 66 18 126/64 96 Room Air 05/27/17 18:00 66 18 126/64 96 Room Air 05/27/17 17:45 67 18 107/59 92 Room Air 05/27/17 17:45 67 18 107/59 92 Room Air 05/27/17 17:40 66 12 112/64 96 Room Air 05/27/17 17:38 66 12 121/61 96 Room Air 05/27/17 17:35 66 12 121/61 96 Room Air 05/27/17 17:30 36.5 66 20 125/66 95 Room Air 05/27/17 13:16 36.6 75 22 110/59 95 Room Air Anesthetic Administered: MAC Level of Alertness: Awake, talking SALDAÑA's with Equal Strength: Yes Pain: No Nausea or Vomiting: No CV Function & Hydration Stable: Yes Airway Device: none Oxygen Delivery: Room Air Lungs: Clear to Auscultation, Normal Air Movement Dermatome Level: Full Sensation PACU Phase 2 Assessment Complications: No Follow up Care: No Patient Instructions Provided: N/A Douglas Gaytan MD May 27, 2017 18:40
--- NOTE | 2017-05-27 18:49 | OP ---
[address] [address] OPERATIVE REPORT PATIENT: JOSE CHAPIN : 1930 MR#: [id number] ADMIT: 05/27/2017 JOB ID: [id number] DATE OF SURGERY: 05/27/2017 PREOPERATIVE DIAGNOSIS(ES): 1. Ventricular tachycardia. 2. Mobitz II AV block. 3. Coronary artery disease, status post bypass grafting. 4. Severe ischemic cardiomyopathy. 5. Dual-chamber pacemaker in place. POSTOPERATIVE DIAGNOSIS(ES): 1. Ventricular tachycardia. 2. Mobitz II AV block. 3. Coronary artery disease, status post bypass grafting. 4. Severe ischemic cardiomyopathy. 5. Dual-chamber pacemaker in place. PROCEDURES PERFORMED: 1. ICD implantation, secondary prevention, with placement of a new RV ICD lead, ICD generator, and utilization of chronic right atrial pacemaker lead. 2. Pacemaker explantation. 3. Right ventricular pace sense lead explantation. 4. Fluoroscopy. SURGEON: Finishing Room Supervisor: Júnior Moore MD, electrophysiology attending. DOUGH CATCHER: Pramod Conteh. IMPLANTED DEVICES: 1. [employer] pulse generator, model HI6499-07, serial number [id number]. 2. RV ICD lead, [employer], 7122Q, 58 cm, serial number [id number]. EXPLANTED DEVICES: 1. [employer] pulse generator. 2. RV pace sense lead, [employer] 2088TC, 58 cm, serial number [id number]. CHRONIC DEVICE: Right atrial lead, [employer], 2088TC, 52 cm, serial number [id number]. ANESTHESIA: Monitored anesthesia care was provided by the anesthesiology service. INDICATION: The patient is a pleasant 86-year-old man with ischemic heart disease, bypass grafting, severe ischemic cardiomyopathy, admitted with a myocardial infarction manifesting with Mobitz II AV block, receiving dual-chamber pacemaker implant a couple of months ago. On device check he was identified to have sustained ventricular tachycardia during which he had near syncope. After a discussion of the risks and benefits of upgrade to an ICD system, he opted to proceed. PROCEDURE DESCRIPTION: Following informed consent, the patient was taken to the EP laboratory in a fasting nonsedated state where he was prepped and draped in the usual sterile fashion. The left infraclavicular surgical scar was infiltrated with 60 mL of a 50/50 mixture of bupivacaine and lidocaine. Once adequate anesthesia was achieved, a 4 cm incision was performed overlying the previous surgical scar. Dissection was carried down to the capsule and the leads and generator freed loose of adhesions. Then, under fluoroscopic guidance, the left subclavian vein was accessed over the first rib to deploy a 0.035, 3 mm J-guidewire. Over this a 7-Greek tear-away sheath was advanced. Once the guidewire was removed, an active fixation ICD lead was advanced to the RV outflow tract and ultimately the RV apex. The lead was affixed in position using its associated fixation screw. The lead was connected to the external analyzer and demonstrated appropriately sensed R waves, impedance, capture threshold, and impedance. The lead was checked to 10 V and there was no evidence of diaphragmatic stimulation. Once the position and redundancy of the lead had been confirmed in multiple fluoroscopic views, the lead was anchored to the prepectoralis fascia using its associated anchoring sleeves and two Ethibond sutures. The pocket was then copiously irrigated with antibiotic solution. The two chronic leads were disconnected from the pacemaker generator. The RV pacemaker lead had a stylet deployed through its lumen. The anchoring sleeve was freed loose of its sutures. The active fixation helix was retracted and the lead was easily pulled out and explanted from the body. The new lead the chronic right atrial pacemaker lead were then connected to a new pulse generator. The entire system was placed into the capsule. After copious antibiotic irrigation the incision was then closed with running layers of absorbable suture. The wound was dressed with skin adhesive and a small dressing. At the end of procedure, the needle, sponge, and instrument counts were all correct. COMPLICATIONS: None. ESTIMATED BLOOD LOSS: Negligible. DEVICE MEASURED DATA: 1. Right atrial lead 2.9 mV, 450 ohms, 0.75 V at 0.5 msec. 2. RV lead 11.7 mV, 510 ohms, 0.5 V at 0.5 msec. FINAL PROGRAM PARAMETERS: 1. DDD 60-130 beats per minute. 2. VF zone at 187 beats per minute with ATP during charge followed by shocks. 3. VT 2 zone at 171 beats per minute, ATP x3, followed by shocks. 4. VT monitor zone at 150 beats per minute. IMPRESSION: Successful dual-chamber ICD implantation. PLAN: 1. Stat portable chest x-ray. 2. PA and lateral chest x-ray in morning. 3. Device interrogation in the morning. 4. IV vancomycin through tomorrow. 5. Doxycycline x7 days. 6. Wound check in one week. ATTENDING STATEMENT: Júnior Moore MD, electrophysiology attending, was present was present for and supervised/performed all aspects of this procedure.
--- NOTE | 2017-05-27 19:51 | NUR ---
JOHN Patient return from cathlab ICD placement at 1730. Family at bedside. Patient denies pain. Sleepy but wakes easily to voice. Taking PO but HNV. No bleeding or hematoma to left chest incision. Transferred by bed to room 2025 at 1940. Report to receiving RN.
[2017-05-27] MEDS ORDERED: Insulin LISPRO Low-Dose Scale SUBQ PRN (20:05)
[2017-05-27] MEDS ORDERED: Timolol 0.5% 5 mL Ophthalmic Solution BOTH_EYES SCH (21:00)
[2017-05-27] MEDS ORDERED: TIMOLOL 0.5% BOTH_EYES SCH (21:00)
--- NOTE | 2017-05-28 04:05 | NUR ---
Fully A/O pt rec'd from [facility] at 1945. Denies pain/SOB/N/V. Maintains 96% on room air. BG 160's this shift. L chest site dressed with ABD pad and tape, no drainage/hematoma noted. Sinus 70's with 1st degree AV block, IVCD, occasional PVCs, rare A-pacing. No Vtach observed. Bilat PIVs patent. 400cc clear yellow urine output tonight. Plan for CXR in AM.
[2017-05-28 04:13] VITALS: BP 108/57; PULSE 73; RESP 18; O2SAT 98
[2017-05-28] MEDS ORDERED: Vancomycin Inj 1,000 MG in IV Premix 1 EACH IV ONE (04:55)
[2017-05-28 05:47] VITALS: PULSE 70
--- NOTE | 2017-05-28 06:47 | NUR ---
Pt taken to X-ray at 0647 via .
[2017-05-28] MEDS ORDERED: Magnesium Chloride SR 64 mg ER24 Tablet PO SCH (08:30)
[2017-05-28 08:31] VITALS: BP 120/74; PULSE 79; RESP 16; O2SAT 96
--- NOTE | 2017-05-28 09:33 | DIS ---
[address] [address] DISCHARGE SUMMARY PATIENT: JOSE CHAPIN : 1930 MR#: [id number] ADMIT: 05/27/2017 JOB ID: [id number] DIS: 05/28/2017 DISCHARGE DIAGNOSES: 1. Severe ischemic cardiomyopathy. 2. Coronary artery disease, status post bypass grafting. 3. Mobitz II AV block. 4. Ventricular tachycardia. DISCHARGE MEDICATIONS: Doxycycline 100 mg p.o. daily x7 days. Resumption of home medications which include: 1. Aspirin 81 mg daily. 2. Atorvastatin 40 mg p.o. q.h.s. 3. Vitamin D. 4. Plavix 75 mg p.o. daily. 5. Furosemide 40 mg p.o. daily. 6. Glipizide 10 mg p.o. b.i.d. 7. Losartan 25 mg p.o. daily. 8. Magnesium chloride 64 mg p.o. daily. 9. Metformin 1 g p.o. b.i.d. 10. Insulin as directed. 11. Timolol eye drops. 12. Vitamin B. CONSULTATIONS: Anesthesiology. PROCEDURES PERFORMED: ICD implantation. Please see separate dictated report for the details. IDENTIFICATION/BRIEF HOSPITAL COURSE: The patient was a pleasant 86-year-old man with coronary artery disease bypass grafting, severe ischemic cardiomyopathy, dual-chamber pacemaker in place for Mobitz II AV block who was identified to have sustained ventricular tachycardia. He underwent upgrade to a dual-chamber ICD system. He remained hemodynamically stable, asymptomatic overnight. His radiograph showed stable lead position and no pneumothorax. Device interrogation showed excellent lead parameters. He will be discharged home for close followup. DISPOSITION: Home with family. LIMITATIONS: Standard post implant precautions. DIET: Cardiac diet. FOLLOWUP: One week followup with pacemaker clinic and six week followup with Aden Larry.
[2017-05-28 10:15] VITALS: PULSE 85
--- NOTE | 2017-05-28 11:54 | DRSVH ---
PROCEDURE: X-RAY CHEST, TWO VIEWS ([id number]) INDICATIONS: FOR NEW LEAD PLACEMENT. TECHNIQUE: Two views of the chest were acquired. COMPARISON: [facility], CR, XR CHEST 1VW (PORTABLE), 05/27/2017, 17:27. [facility], CR, XR CHEST 2VW, 04/18/2017, 8:19. FINDINGS: Surgical changes and devices: Post median sternotomy. Stable left chest AICD. Lungs and pleura: No pleural effusions or pneumothorax. Lungs are clear. Mediastinum: Mediastinal contours are normal. Heart size is normal. Bones and chest wall: No suspicious bony abnormalities. Soft tissues appear unremarkable. IMPRESSION: 1. Stable chest post pacer placement. Dictated by: Dwayne Andrew Ramon Interpreted: Aden Damico MD on 05/28/2017 at 9:00 Transcribed by: AL on 05/28/2017 at 14:54 Approved by: Aden Damico M.D. on 05/28/2017 at 12:19
--- NOTE | 2017-05-28 12:08 | NUR ---
Discharge Pt was provided education on new part and given booklets for extra adherance. Pt understands when his follow-up appointment is. Pt and family demonstrated understanding of teaching. IVs were removed. Telemetry was removed. Pt left with all personal belongings and was escorted down to vehicle by this RN.
== END 2017-05-28 11:45 | disposition home or self-care (01) ==
LOC: SPI 03:06 → PCC 19:10 → SPI 05-28 11:45
PROVIDERS: ATTEND Internal Medicine Cardiovascular Disease
DX: I47.2 Ventricular tachycardia (principal); Z00.6 Encounter for examination for normal comparison and control in clinical research program; I44.1 Atrioventricular block, second degree; I25.10 Atherosclerotic heart disease of native coronary artery without angina pectoris; I25.5 Ischemic cardiomyopathy; I25.2 Old myocardial infarction; E11.9 Type 2 diabetes mellitus without complications; Z95.1 Presence of aortocoronary bypass graft; Z95.0 Presence of cardiac pacemaker; Z79.82 Long term (current) use of aspirin; Z79.02 Long term (current) use of antithrombotics/antiplatelets; Z79.84 Long term (current) use of oral hypoglycemic drugs; Z79.4 Long term (current) use of insulin
CPT/HCPCS: 33233; 33234; 33249; 36415; 71010; 71020; 80048; 85025; 85610; 93005; C1721; C1769; C1892; C1895; J1644; J1815; J2250; J2370; J2704; J3010; J3370; J7030; J7050